=== PATIENT | female | born 1930 | race Caucasian/White ===

== ENCOUNTER 2018-08-20 12:43 | Inpatient (IN) | payer OTHER ==
[2018-08-20] MEDS ORDERED: IPRATROPIUM/ALBUTEROL 3 ML DEYVIAL IH ONE (13:00)
--- NOTE | 2018-08-20 13:03 | EDPHY ---
H & P Time Seen by Provider: 08/20/18 12:50 HPI/ROS: CHIEF COMPLAINT: Worsening shortness of breath x2 days HISTORY OF PRESENT ILLNESS: Patient presents with increasing oxygen requirement over baseline 4 L nasal cannula. She is more short of breath and is feels tired, increasing short of breath especially with exertion. This is associated with a sharp left-sided chest pain just under her breast which is pleuritic. Not there unless she takes deep breath. No hemoptysis or sputum production. No fever or chills. REVIEW OF SYSTEMS: Eye: no change in vision ENT: no sore throat Cardiac: no chest pain or syncope Pulmonary: HPI no coughing or hemoptysis Abdomen: no vomiting, diarrhea, abdominal pain Musculoskeletal: No leg swelling Skin: no rash Neuro: no headache Constitutional: no fever : no urinary symptoms A comprehensive 10 point review of systems is otherwise negative aside from elements mentioned in the history of present illness. PAST MEDICAL HISTORY: Includes COPD, atrial fibrillation not anticoagulated, hypertension, hyperlipidemia, depression Social history: Quit smoking 30 years ago, lives in [facility] General Appearance: Alert and conversant, cooperative. Eyes: No scleral icterus. ENT, Mouth: Normal mucous membranes. Respiratory: Slight bilateral expiratory wheezing and tachypnea. On oxygen she is able to speak in full sentences. Cardiovascular: Regular rate and rhythm. Gastrointestinal: Abdomen is soft and non tender. Neurological: Alert, face symmetric, normal motor and sensory in extremities. Skin: Warm and dry, no rashes. Musculoskeletal: No peripheral edema. Psychiatric: Not agitated. Emergency Department course/MDM: DuoNeb, EKG, D-dimer and chest x-ray. 1345: D-dimer elevated, CTA discussed and consented. 1458: CT results discussed with the patient, admission for treatment of COPD and further investigation of left lower lung atelectasis. The left lung atelectasis likely the reason for the patient's increasing oxygen requirement and left-sided sharp chest pain. Does not have evidence of pneumonia or PE. Smoking Status: Former smoker Constitutional: Initial Vital Signs Temperature (C) 37.2 C 08/20/18 12:49 Heart Rate 73 08/20/18 12:49 Respiratory Rate 16 08/20/18 12:49 Blood Pressure 130/61 H 08/20/18 12:49 O2 Sat (%) 95 08/20/18 12:49 O2 Delivery Mode Nasal Cannula O2 (L/minute) 4 Allergies/Adverse Reactions: No Known Allergies Allergy (Unverified 08/20/18 12:49) Home Medications: Medication Instructions Recorded Acetaminophen [Tylenol ES 500 mg 1,000 mg PO Q6 PRN 08/20/18 (*)] Albuterol [Proventil Inhaler HFA 2 puffs IH Q4H PRN 08/20/18 (*)] Aspirin [Aspirin 81mg (*)] 81 mg PO DAILY 08/20/18 Bisacodyl [Dulcolax] 10 mg RC DAILY PRN 08/20/18 Cholecalciferol Vit D3 [Vitamin D3 5,000 units PO DAILY 08/20/18 2000 units tab (OTC)] Clotrimazole 1% [Lotrimin 1%] 1 nadia TOP BID PRN 08/20/18 Diclofenac Sodium 1% [Voltaren Gel 1 gm TP Q6 PRN 08/20/18 (*)] Docusate Sodium [Colace 100 MG (*)] 100 mg PO Q2D@08/20/18 Gabapentin [Neurontin 100 MG (*)] 200 mg PO BID 08/20/18 Herbals/Supplements -Info Only 1 ea PO DAILY 08/20/18 Hydrocortisone 2.5% 1 nadia TP BID PRN 08/20/18 [Hydrocortisone 2.5% cream (*)] Levothyroxine [Synthroid 88 mcg 88 mcg PO HS 08/20/18 (*)] Losartan Potassium 100 mg PO DAILY 08/20/18 Mirtazapine [Remeron] 15 mg PO DAILY 08/20/18 Polyethylene Glycol 3350 [Miralax 17 gm PO Q2D@09 08/20/18 17 gm (*)] Pravastatin Sodium [Pravachol] 40 mg PO HS 08/20/18 Sodium Chloride [Saline Nose [place]] 1 spray NS Q4 PRN 08/20/18 Umeclidinium Brm/Vilanterol Tr 1 each IH DAILY 08/20/18 [Anoro Ellipta 62.5-25 Mcg INH] amLODIPine BESYLATE [Norvasc 10 mg 10 mg PO DAILY 08/20/18 (*)] traMADol [Ultram 50 mg (*)] 50 mg PO BID PRN 08/20/18 Medical Decision Making - Diagnostics EKG Interpretation: 12-lead EKG interpreted by me; official reading is in computer system. My interpretation is sinus rhythm with borderline left axis, old anterior septal infarct, nonspecific anterior T-wave abnormalities. Imaging Results: Imaging Impressions Chest X-Ray 08/20/18 12:55 Impression: Mild pulmonary vascular congestion right lower lung. No definite focal infiltrate or pleural effusion identified. Chest/Thorax CTA 08/20/18 13:44 Impression: 1. Negative CT examination of the chest for acute pulmonary thromboembolic disease. 2. Severe left lower lobe collapse associated with abrupt attenuation of the left lower lobe bronchus just past the origin, compatible with endoluminal obstruction, mucus retention versus endoluminal mass. 3. Severe underlying centrilobular emphysema. Results called to Dr. Savage Bose at 2:45 p.m. Imaging: Discussed imaging studies w/ at home independent call center agent Radiologist, I viewed and interpreted images myself Differential Diagnosis: Differential diagnosis considered for shortness of breath including but not limited to pulmonary infectious process, COPD, asthma, pulmonary embolus and congestive heart failure. Consult/Admit Bed Type: [place] [id number] - Data Points Laboratory Results: Laboratory Results 08/20/18 13:22 08/20/18 13:22 08/20/18 08/20/18 08/20/18 13:22 13:22 13:22 WBC 9.54 10^3/uL H 10^3/uL (3.80-9.50) RBC 4.42 10^6/uL 10^6/uL (4.18-5.33) Hgb 13.6 g/dL g/dL (12.6-16.3) Hct 41.4 % % (38.0-47.0) MCV 93.7 fL fL (81.5-99.8) MCH 30.8 pg pg (27.9-34.1) MCHC 32.9 g/dL g/dL (32.4-36.7) RDW 14.8 % % (11.5-15.2) Plt Count 232 10^3/uL 10^3/uL (150-400) MPV 10.4 fL fL (8.7-11.7) Neut % (Auto) 55.0 % % (39.3-74.2) Lymph % (Auto) 35.4 % % (15.0-45.0) [place] % (Auto) 8.0 % % (4.5-13.0) Eos % (Auto) 0.3 % L % (0.6-7.6) Baso % (Auto) 1.0 % % (0.3-1.7) Nucleat RBC Rel Count 0.0 % % (0.0-0.2) Absolute Neuts (auto) 5.24 10^3/uL 10^3/uL (1.70-6.50) Absolute Lymphs (auto) 3.38 10^3/uL H 10^3/uL (1.00-3.00) Absolute Monos (auto) 0.76 10^3/uL 10^3/uL (0.30-0.80) Absolute Eos (auto) 0.03 10^3/uL 10^3/uL (0.03-0.40) Absolute Basos (auto) 0.10 10^3/uL 10^3/uL (0.02-0.10) Absolute Nucleated RBC 0.00 10^3/uL 10^3/uL (0-0.01) Immature Gran % 0.3 % % (0.0-1.1) Immature Gran # 0.03 10^3/uL 10^3/uL (0.00-0.10) D-Dimer 1.74 ug/mLFEU H ug/mLFEU (0.00-0.50) Sodium 141 mEq/L mEq/L (135-145) Potassium 4.4 mEq/L mEq/L (3.5-5.2) Chloride 109 mEq/L mEq/L (97-110) Carbon Dioxide 21 mEq/l L mEq/l (22-31) Anion Gap 11 mEq/L mEq/L (6-14) BUN 27 mg/dL H mg/dL (7-23) Creatinine 1.3 mg/dL H mg/dL (0.6-1.0) Estimated GFR 39 Glucose 91 mg/dL mg/dL (70-100) Calcium 10.0 mg/dL mg/dL (8.5-10.4) POC Troponin I 08/20/18 12:56 WBC RBC Hgb Hct MCV MCH MCHC RDW Plt Count MPV Neut % (Auto) Lymph % (Auto) [place] % (Auto) Eos % (Auto) Baso % (Auto) Nucleat RBC Rel Count Absolute Neuts (auto) Absolute Lymphs (auto) Absolute Monos (auto) Absolute Eos (auto) Absolute Basos (auto) Absolute Nucleated RBC Immature Gran % Immature Gran # D-Dimer Sodium Potassium Chloride Carbon Dioxide Anion Gap BUN Creatinine Estimated GFR Glucose Calcium POC Troponin I 0.00 ng/mL ng/mL (0.00-0.08) Medications Given: Discontinued Medications Albuterol/Ipratropium (Duoneb) 3 ml IH EDNOW ONE Stop: 08/20/18 13:01 Last Admin: 08/20/18 13:29 Dose: 3 ml Sodium Chloride (Ns) 500 mls @ 1,000 mls/hr IV EDNOW ONE PRN Reason: Protocol Stop: 08/20/18 14:13 Last Admin: 08/20/18 14:24 Dose: 500 mls Point of Care Test Results: Chemistry 08/20/18 12:56 POC Troponin I 0.00 ng/mL ng/mL (0.00-0.08) Departure - Departure Disposition: [facility] Inpatient Acute Clinical Impression: Chronic obstructive pulmonary disease with acute exacerbation, Atelectasis of left lung Condition: Good
[2018-08-20 13:27] LABS: PLATELET COUNT 232 10^3/uL (150-400)
--- NOTE | 2018-08-20 13:28 | CPEKG ---
Test Reason : OPEN Blood Pressure : / mmHG Vent. Rate : 071 BPM Atrial Rate : 071 BPM P-R Int : 161 ms QRS Dur : 093 ms QT Int : 421 ms P-R-T Axes : 039 -22 111 degrees QTc Int : 458 ms Sinus rhythm Borderline left axis deviation Low voltage, precordial leads Anteroseptal infarct, old Repol abnrm suggests ischemia, lateral leads Confirmed by Savage Bose ([id number]) on 08/20/2018 1:27:47 PM Referred By: Confirmed By:Savage Bose
[2018-08-20] MEDS ORDERED: NS 500 ML IV ONE (13:44)
[2018-08-20] MEDS ORDERED: IOPAMIDOL (ISOVUE 370) 100 ML BTL IV ONE (13:53)
[2018-08-20] MEDS ORDERED: ACETAMINOPHEN 500 MG TAB PO PRN (15:14)
[2018-08-20] MEDS ORDERED: traMADol 50 MG TAB PO PRN (15:14)
[2018-08-20] MEDS ORDERED: SODIUM CL NASAL 45 ML BTL NS PRN (15:14)
[2018-08-20] MEDS ORDERED: ONDANSETRON 4 MG/2 ML VIAL IVP PRN (15:22)
[2018-08-20] MEDS ORDERED: NS 1,000 ML IV SCH (15:30)
[2018-08-20] MEDS: ALBUTEROL 3 ML DEYVIAL IH SCH ×2 (17:03→21:04)
--- NOTE | 2018-08-20 17:56 | GHP ---
DATE OF ADMISSION: 08/20/2018 CHIEF COMPLAINT: Shortness of breath. HISTORY: The patient is an 87-year-old female who comes to the emergency room complaining of counts include [facility] beds at the [facility] shortness of breath and worsening hypoxemia. She has a history of COPD, and wears 4 L of oxygen a t baseline. She has a [id number] sputum. Shortness of breath has been about a week. She has bee n very ill, lying in bed most of the day with minimal p.o. intake. She also developed a new left-ligia ed chest pain. This is more subaxillary, radiating to her back. It is worse with movement. She got the pain just now walking to the bathroom. PAST MEDICAL HISTORY: 1. COPD, 4 L baseline. 2. Atrial fibrillation. 3. Hypertension. 4. Hyperlipidemia. PAST SURGICAL HISTORY: Total knee arthroplasty, shoulder surgery, cholecystectomy, appendectomy. MEDICATIONS: Please see computerized record for full detailed list. ALLERGIES: No known drug allergies. SOCIAL HISTORY: She quit smoking 30 years ago. She smoked from the time of high school until her la te 50s. No alcohol. She lives in assisted living at [facility]. REVIEW OF SYSTEMS: Complete review of systems obtained. Review of systems negative for constitution al, HEENT, GI, pulmonary, cardiovascular, , hematology, skin, musculoskeletal, endocrine, psych, ex cept for positives as in HPI. FAMILY HISTORY: Reviewed, noncontributory to presenting complaint. PHYSICAL EXAMINATION: GENERAL: Well-developed, well-nourished female, in mild respiratory distress. She is dyspneic with conversation. VITAL SIGNS: Temp is 37.2, pulse 82, blood pressure 134/70, sa turating 87% on 5 L. ENT: Normal ears and nose. Hearing intact. Normal teeth. Oropharynx moist. EYES: Normal conjunctivae, pupils equal, round, react to light. CHEST: Increased work of breathin g. LUNGS: Diminished bilaterally. CARDIOVASCULAR SYSTEM: Regular rhythm. No murmur. No lower ex tremity edema. ABDOMEN: Soft, nontender. No hepatosplenomegaly. SKIN: Warm, dry, intact, without rash. MUSCULOSKELETAL: No cyanosis or clubbing. Strength 5/5, upper and lower extremities. NEURO : Cranial nerves intact. Normal sensation to light touch. PSYCH: Alert and oriented x3. Normal a ffect. Normal judgment and insight. Normal memory. LABORATORY DATA: White count 9.54, hematocrit 41.4, platelets 232. Sodium 141, potassium 4.4, chlor rosalie 109, bicarb 21, BUN 27, creatinine 1.3, glucose 91. EKG viewed by me. My personal interpretation is normal sinus rhythm, no ST-T wave changes. Chest x-ray shows minimal infiltrate. CT angiogram of the chest is negative for pulmonary embolus. She has severe COPD. She has left lower lobe collapse due to endobronchial lesion, possible tumor ve rsus mucus. ASSESSMENT AND PLAN: 1. Acute on chronic respiratory failure: Baseline is 4 L of oxygen. Currently saturating 87% on 5 L, and we are turning up her oxygen. I suspect this is due to a combination of chronic obstructive p ulmonary disease exacerbation and the lung collapse we have discovered. We will place her on continu ous pulse oximetry and scheduled nebulizer treatments. I have consulted Pulmonary Medicine, as discu ssed below. 2. Left lower lobe collapse: I have spoken with Dr. Davis and consulted Pulmonary Medicine. I anti cipate she will need a bronchoscopy. I will make her n.p.o. after midnight. 3. Chronic obstructive pulmonary disease exacerbation: We will check a respiratory PCR. We will sc hedule her on nebulizers. I do not hear any wheezing at this time. She is mostly diminished. Could consider adding steroids. 4. Acute renal failure: This is probably due to dehydration, due to her decreased oral intake due t o acute illness. Will hydrate her with IV fluids and recheck in the morning. 5. Code status: To be clarified. 6. Admission status: Will admit to observation. We will re-evaluate tomorrow regarding the ongoing need for hospitalization. 7. Deep venous thrombosis prophylaxis: She is high risk. Will place her on subcutaneous Lovenox. /[id number]/MODL
[2018-08-20] MEDS: GABAPENTIN 100 MG CAP PO SCH (19:58)
[2018-08-20] MEDS: PRAVASTATIN SODIUM 40 MG TAB PO SCH (19:59)
[2018-08-20] MEDS: LEVOTHYROXINE 88 MCG TAB PO SCH (19:59)
[2018-08-20] MEDS: DOCUSATE SODIUM 100 MG CAP PO SCH (19:59)
[2018-08-21] MEDS: ALBUTEROL 3 ML DEYVIAL IH SCH ×4 (05:22→21:29)
[2018-08-21] MEDS: NS 1,000 ML IV SCH ×2 (08:42→13:50)
[2018-08-21] MEDS ORDERED: ENOXAPARIN 40 MG/0.4 ML SYR SC SCH (09:00)
--- NOTE | 2018-08-21 09:37 | HOSPPROG ---
Hospitalist Progress Note Assessment/Plan: DIAGNOSES: * Acute hypoxemic respiratory failure * Acute carrillo virus infection * Acute complete collapse of segment of left lower lobe, question of possible airway obstruction due to secretions mass or other cause * Acute kidney injury due to dehydration * Left ribcage pain likely due to coughing * COPD exacerbation * Chronic atrial fibrillation * Chronic hypertension on antihypertensive PLANS: * Continue respiratory isolation * Continue current respiratory care * Will add Lidoderm patches for her ribcage pain * Pulmonary consultation pending * IV hydration for dehydration and renal issues, follow renal function closely * Enoxaparin DVT prophylaxis Will discuss with pulmonology today after they see her Still NPO for possible bronchoscopy SUBJECTIVE: Feels weak and tired unchanged from yesterday Mentions pain at lower left ribs anteriorly with coughing Shortness of breath unchanged OBJECTIVE Vitals reviewed: Still needing 5 L oxygen with intermittent tachypnea, intermittent mild hypertension; pulse and temperatures are good Branch Administrator, my review: Exam: alert oriented, looks tired skin warm dry color ok resps mildly labored sitting in chair on 5 L oxygen lungs very diminished but otherwise clear BSs heart regular abd soft nondistended nontender, bowel sounds present limbs warm, trace by pedal edema iv site ok Lab data: Creatinine is down down to 1.0 and BUN down 20 Slightly hyperchloremic Troponin negative Objective: Vital Signs Temp Pulse Resp BP Pulse Ox 37.3 C 83 20 148/66 H 95 08/21/18 07:38 08/21/18 07:38 08/21/18 08:59 08/21/18 07:38 08/21/18 08:59 Microbiology 08/20/18 17:40 Respiratory Panel (PCR) - Final Nasal, Sinus - Swab Coronovirus Oc43 Detected Laboratory Results 08/21/18 05:30 08/20/18 08/21/18 08/22/18 06:59 06:59 06:59 Intake Total 500 Balance 500 - Time Spent With Patient Time Spent with Patient: greater than 35 minutes Time Spent with Patient: Greater than 35 minutes spent on this patients care, greater than 50% of time spent counseling, educating, and coordinating care regarding the above mentioned plan. ICD10 Worksheet Patient Problems: Problems Problem Status Onset Atelectasis of left lung Acute Chronic obstructive pulmonary disease with acute exacerbation Acute
[2018-08-21] MEDS ORDERED: BENZONATATE 100 MG CAP PO PRN (10:19)
[2018-08-21] MEDS: LIDOCAINE 4%/MENTHOL 1% PATCH TD SCH (10:28)
[2018-08-21] MEDS: LOSARTAN POTASSIUM 50 MG TAB PO SCH (10:36)
[2018-08-21] MEDS: MIRTAZAPINE 15 MG TAB PO SCH (10:37)
[2018-08-21] MEDS: GABAPENTIN 100 MG CAP PO SCH ×2 (10:37→21:28)
[2018-08-21] MEDS: Umeclidinium Brm/Vilanterol Tr [Anoro Ellipta 62.5-25 Mcg Inh] IH SCH (10:41)
--- NOTE | 2018-08-21 10:44 | ASMTCMCOM ---
CM Note CM Note Notes: Patient admitted with acute hypoxemic respiratory failure r/2 viral infection and COPD exacerbation. She lives at [facility] but is independent in all ADLs. She uses 4L O2 around the clock. She "hates" PT and feels that she gets enough physical movement throughout her day. I assured her that we would try and get her back up to speed before going home so that she could resume her normal life. Anticipate an independent d/c. Case Management will follow. Date Signed: 08/21/2018 10:43 AM Electronically Signed By:Flores Novoa RN
[2018-08-21] MEDS: PRAVASTATIN SODIUM 40 MG TAB PO SCH (21:28)
[2018-08-21] MEDS: LEVOTHYROXINE 88 MCG TAB PO SCH (21:28)
[2018-08-21] MEDS: PATCH REMOVAL 1 EA PATCH TD SCH (21:32)
[2018-08-22 05:19] LABS: PLATELET COUNT 152 10^3/uL (150-400)
[2018-08-22] MEDS: ALBUTEROL 3 ML DEYVIAL IH SCH ×4 (06:10→21:33)
[2018-08-22] MEDS: LIDOCAINE 4%/MENTHOL 1% PATCH TD SCH (09:08)
[2018-08-22] MEDS: LOSARTAN POTASSIUM 50 MG TAB PO SCH (09:09)
[2018-08-22] MEDS: GABAPENTIN 100 MG CAP PO SCH ×2 (09:09→21:28)
[2018-08-22] MEDS: MIRTAZAPINE 15 MG TAB PO SCH (09:09)
[2018-08-22] MEDS: ENOXAPARIN 30 MG/0.3 ML SYR SC SCH (09:10)
[2018-08-22] MEDS: POLYETHYLENE GLYCOL 3350 17 GM PKT PO SCH (09:15)
[2018-08-22] MEDS: Umeclidinium Brm/Vilanterol Tr [Anoro Ellipta 62.5-25 Mcg Inh] IH SCH (09:16)
--- NOTE | 2018-08-22 09:53 | PDMN ---
Medical Necessity Medical necessity: Pt meets IP criteria as of 08/21/18 per MD and [facility] MG-PUL ( Pulmonary Disease); los > 2 mn for ongoing tx and management of acute on chronic respiratory failure with increased O2 demand (baseline is 4 lpm, currently needing 5-6 lpm) in the setting of COPD as well as left lower lobe collapse and MISTY; requiring respiratory support, pulmonology consultation with possible bronchoscopy, O2 monitoring and serial labs.
--- NOTE | 2018-08-22 10:46 | HOSPPROG ---
Hospitalist Progress Note Assessment/Plan: DIAGNOSES: * Acute hypoxemic respiratory failure * Acute carrillo virus infection * Suspect possible postviral community-acquired bacterial pneumonia with fever and high procalcitonin and consolidated segment of left lower lobe * Acute complete collapse of segment of left lower lobe, question of possible airway obstruction due to secretions mass or other cause * Acute kidney injury due to dehydration * Left ribcage pain likely due to coughing * COPD exacerbation * Chronic atrial fibrillation * Chronic hypertension on antihypertensive PLANS: * Continue respiratory isolation for carrillo virus * Continue current respiratory care * Antibiotic added for possible secondary bacterial pneumonia * Will add Lidoderm patches for her ribcage pain * Pulmonary consultation pending - ? If bronchoscopy will be helpful for assessing collapse left lower lobe segment * IV hydration for dehydration and renal issues, follow renal function closely * Enoxaparin DVT prophylaxis I reviewed in detail with Dr. Wilkinson last night. Apparently the communications did not occur from Tuesday low heel builder to him that this patient needed consultation so he did not end up seeing her yesterday but will see her today. I will review with him after he sees her today. SUBJECTIVE: Perhaps slightly less short of breath than yesterday but still notably more dyspneic than usual Some nasal congestion Some chills last night Lidoderm helping her ribcage pain OBJECTIVE Vitals reviewed: T-max 38.4 overnight, Oxygen at 4 L, other vitals stable Exam: alert oriented, looks tired skin warm dry color ok resps mildly labored sitting in chair on 4 L oxygen lungs very diminished but otherwise clear BSs heart regular abd soft nondistended nontender, bowel sounds present limbs warm, trace by pedal edema iv site ok Lab data: Creatinine stable at 1.0 Slightly hyperchloremic Procalcitonin elevated 0.19 Objective: Vital Signs Temp Pulse Resp BP Pulse Ox 36.4 C 70 20 112/60 96 08/22/18 08:22 08/22/18 08:22 08/22/18 08:22 08/22/18 08:22 08/22/18 08:22 Laboratory Results 08/22/18 04:08 08/22/18 04:08 08/21/18 08/22/18 08/23/18 06:59 06:59 06:59 Intake Total 1650 Balance 1650 - Time Spent With Patient Time Spent with Patient: greater than 35 minutes Time Spent with Patient: Greater than 35 minutes spent on this patients care, greater than 50% of time spent counseling, educating, and coordinating care regarding the above mentioned plan. ICD10 Worksheet Patient Problems: Problems Problem Status Onset Atelectasis of left lung Acute Chronic obstructive pulmonary disease with acute exacerbation Acute
[2018-08-22] MEDS ORDERED: AZITHROMYCIN 250 MG TAB PO ONE (10:47)
[2018-08-22] MEDS: SODIUM CL NASAL GEL 14.1 GM TUBE TP PRN (11:14)
--- NOTE | 2018-08-22 18:45 | GCON ---
PULMONARY/CRITICAL CARE CONSULTATION DATE OF CONSULTATION: 08/22/2018 REFERRING PHYSICIAN: Jesus Page MD REASON FOR REFERRAL: Evaluation and management of collapsed left lower lobe in the setting of a wendi l pneumonia. HISTORY: The patient is an 87-year-old woman who has a known history of COPD, on oxygen chronically, who was admitted to the hospital 2 days ago complaining of increased shortness of breath and worseni ng hypoxemia that had been present for about a week. She had been feeling quite poorly and had poor appetite. She also had quite severe left-sided chest pain along her lateral chest that moved to her back. It was worse with movement. She was admitted and started on nebulized bronchodilators. She r eports little sputum production. The shortness of breath has improved, which she attributes to the b ronchodilators, and the pain has resolved. PAST MEDICAL HISTORY: 1. COPD. 2. Atrial fibrillation. 3. Hypertension. 4. Hyperlipidemia. MEDICATIONS: Albuterol, Norvasc, aspirin, Dulcolax, Colace, Synthroid, losartan, Remeron, Pravachol, Ultram, tramadol, and Anoro. ALLERGIES: None. SOCIAL HISTORY: The patient has an extensive history of smoking, which she stopped 30 years ago. Delgado neil lives in assisted living at [facility]. FAMILY HISTORY: Unremarkable. REVIEW OF SYSTEMS: A 10-point review of systems adds nothing to the history of present illness. PHYSICAL EXAMINATION: GENERAL: The patient is awake and alert. She is in no acute distress. VITAL SIGNS: Her blood pressure is 127/63 with a heart rate of 69. She is afebrile. Oxygen saturations a re 96% on 4 L. HEENT: Normocephalic and atraumatic. No icterus. NECK: No JVD. Trachea is midlin e. CHEST: She has bibasilar rales. CARDIAC: Regular rate and rhythm without murmur. ABDOMEN: So ft, nontender. Bowel sounds are present. EXTREMITIES: No clubbing or cyanosis. She has 1+ lower e xtremity edema. NEURO: The patient is awake, alert. She has no gross motor or sensory deficits. LABORATORY: White blood count is 6.7, down from 9.5. A D-dimer was 1.7 and a chemistry group is unr emarkable. Procalcitonin is 0.16. A chest x-ray from August 20 did not demonstrate any infiltrate. A CT scan of the chest showed no pulmonary emboli. There was complete collapse of the left lower l obe, with occlusion of the left lower lobe bronchus proximally. There was no mass or significant eri nopathy. She had severe underlying centrilobular emphysema. Images reviewed by me. A respiratory p red is positive for coronavirus 1. ASSESSMENT: 1. Respiratory tract infection due to coronavirus. The patient reports symptomatic improvement with current therapy with nebulized bronchodilator, ceftriaxone, and azithromycin. 2. Chest pain. This has resolved, possibly related to Celebrex, but also may have improved spontane ously if this was due to a viral pleurisy. 3. Left lower lobe collapse. Possibilities include mucus plugging related to her viral respiratory tract infection or possibly lung cancer. I discussed this differential diagnosis with the patient. I think that the diagnostic possibilities include proceeding with bronchoscopy now, which would help diagnose mucous plugging or lung cancer, and I would be able to get biopsies. Alternatively, we coul d wait a week or 2, treat her for her respiratory tract infection, and then repeat a CAT scan to see if her collapse has resolved. If not, bronchoscopy could be performed at that time. The patient wou ld like to discuss this with her daughter before she proceeds, and was unable to reach her daughter t onight, so I will not schedule bronchoscopy at this time. RECOMMENDATIONS: 1. Await decision from the patient regarding whether she would like to proceed with bronchoscopy now or wait and perform an outpatient CT scan, possibly followed by bronchoscopy. 2. Continue empiric treatment for pneumonia, but I think this can probably be shortened to just a 3- 4 day course of ceftriaxone and azithromycin. 3. Continue bronchodilators. 4. Add guaifenesin. /[id number]/MODL
[2018-08-22] MEDS: PRAVASTATIN SODIUM 40 MG TAB PO SCH (21:28)
[2018-08-22] MEDS: LEVOTHYROXINE 88 MCG TAB PO SCH (21:28)
[2018-08-22] MEDS: DOCUSATE SODIUM 100 MG CAP PO SCH (21:28)
[2018-08-23] MEDS: PATCH REMOVAL 1 EA PATCH TD SCH ×2 (03:39→21:17)
[2018-08-23] MEDS: ALBUTEROL 3 ML DEYVIAL IH SCH ×4 (05:43→21:04)
[2018-08-23] MEDS: LIDOCAINE 4%/MENTHOL 1% PATCH TD SCH (08:08)
[2018-08-23] MEDS: LOSARTAN POTASSIUM 50 MG TAB PO SCH (08:09)
[2018-08-23] MEDS: GABAPENTIN 100 MG CAP PO SCH ×2 (08:10→21:13)
[2018-08-23] MEDS: MIRTAZAPINE 15 MG TAB PO SCH (08:11)
[2018-08-23] MEDS: Umeclidinium Brm/Vilanterol Tr [Anoro Ellipta 62.5-25 Mcg Inh] IH SCH (08:12)
[2018-08-23] MEDS: ENOXAPARIN 30 MG/0.3 ML SYR SC SCH (08:12)
--- NOTE | 2018-08-23 08:25 | HOSPPROG ---
Hospitalist Progress Note Assessment/Plan: #Acute coronavirus URI: supportive care, Mucinex -procalcitonin minimally elevated, thus will stop abx #acute on chronic hypoxemic resp failure -mucus plugging vs endobronchial tumor. Now agrees to bronch; to be done tomorrow #MISTY: due to decreased PO intake. Resolved #Permanent atrial fibrillation: NSR here. 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 Dry cough Objective: Vital Signs Temp Pulse Resp BP Pulse Ox 38.1 C 82 20 148/66 H 93 08/23/18 07:40 08/23/18 07:40 08/23/18 07:40 08/23/18 07:40 08/23/18 07:40 Laboratory Results 08/22/18 04:08 08/22/18 04:08 08/22/18 08/23/18 08/24/18 05:59 05:59 05:59 Intake Total 1650 488 Output Total 200 Balance 1650 288 - Time Spent With Patient Time Spent with Patient: greater than 35 minutes Time Spent with Patient: Greater than 35 minutes spent on this patients care, greater than 50% of time spent counseling, educating, and coordinating care regarding the above mentioned plan. - Physical Exam Constitutional: no apparent distress Eyes: PERRL Ears, Nose, Mouth, Throat: moist mucous membranes Cardiovascular: regular rate and rhythym Respiratory: inspiratory crackles, rhonchi Gastrointestinal: normoactive bowel sounds Genitourinary: no bladder fullness Skin: warm Musculoskeletal: full muscle strength Neurologic: AAOx3, CN II-XII Intact Psychiatric: interacting appropriately ICD10 Worksheet Patient Problems: Problems Problem Status Onset Chronic Disease Mgmt/Transitional Care Acute Chronic obstructive pulmonary disease with acute exacerbation Acute Atelectasis of left lung Acute
[2018-08-23] MEDS ORDERED: AZITHROMYCIN 250 MG TAB PO SCH (09:00)
--- NOTE | 2018-08-23 13:32 | PDINTPN ---
Facilities Locator Progress Note Assessment/Plan: Assessment: Left lower lobe collapse: Question due to mucus plugging versus endobronchial malignancy. The patient now agrees to a bronchoscopy Pneumonia: Likely due to carrillo virus. Doubt she has active superimposed bacterial infection. Currently on ceftriaxone/azithromycin Emphysema: Seen on CT. On Anoro as an outpatient. Currently on albuterol nebs Plan: Add guaifenesin. Bronchoscopy tomorrow 08/23/18 13:33 Subjective: The patient continues to have cough productive of a scant amount of sputum. She feels her dyspnea is mild and stable. Her strength is improving. Objective: Vital Signs Temp Pulse Resp BP Pulse Ox 37.1 C 75 24 H 118/56 L 96 08/23/18 11:10 08/23/18 11:10 08/23/18 11:10 08/23/18 11:10 08/23/18 11:10 Laboratory Results 08/22/18 04:08 08/22/18 04:08 08/22/18 08/23/18 08/24/18 05:59 05:59 05:59 Intake Total 1650 488 Output Total 200 Balance 1650 288 Physical Exam - Physical Exam General Appearance: alert, no apparent distress EENT: normal ENT inspection Neck: normal inspection Respiratory: crackles (Bilateral), rhonchi Cardiac/Chest: edema (1+), irregularly irregular Abdomen: normal bowel sounds, non-tender Skin: normal color, warm/dry Extremities: normal inspection Neuro/Psych: alert, normal mood/affect, No motor weakness ICD10 Worksheet Patient Problems: Problems Problem Status Onset Atelectasis of left lung Acute Chronic Disease Mgmt/Transitional Care Acute Chronic obstructive pulmonary disease with acute exacerbation Acute
[2018-08-23] MEDS: guaiFENesin 600 MG TAB.ER PO SCH ×2 (13:37→21:13)
[2018-08-23] MEDS: SODIUM CL NASAL GEL 14.1 GM TUBE TP PRN (13:37)
[2018-08-23] MEDS: NS 1,000 ML IV SCH (13:42)
--- NOTE | 2018-08-23 15:59 | ASMTCMCOM ---
CM Note CM Note Notes: Reviewed chart, pt worked with PT/OT. They recommend H/HC, pt declines homecare, lives at [facility]. Will bronchoscopy tomorrow. DC Plan: TBD/ likely independent Date Signed: 08/23/2018 03:58 PM Electronically Signed By:Virginia Cabrera RN
[2018-08-23] MEDS: PRAVASTATIN SODIUM 40 MG TAB PO SCH (21:13)
[2018-08-23] MEDS: LEVOTHYROXINE 88 MCG TAB PO SCH (21:13)
[2018-08-24] MEDS: ALBUTEROL 3 ML DEYVIAL IH SCH ×4 (05:38→21:25)
--- NOTE | 2018-08-24 08:12 | HOSPPROG ---
Hospitalist Progress Note Assessment/Plan: #Acute coronavirus URI: supportive care, Mucinex -procalcitonin minimally elevated, thus will stop abx #Acute on chronic hypoxemic resp failure -LLL collapse: moderate purulent secretion on bronch, no mass -Pred 60mg BID, Mucomyst #MISTY: due to decreased PO intake. Resolved #Permanent atrial fibrillation: NSR here. Not on BB or AC #HTN: home meds #Hypothyroidism: LT4 #Emphysema: Anoro #Diet: NPO after MN #DVT ppx: Lovenox #Disp: inpatient admission for Duonebs, PT. DC once clinically improved in next 1-2 days. Discussed case with Dr. Wilkinson Subjective: anxious and more SOB after bronch Objective: Vital Signs Temp Pulse Resp BP Pulse Ox 36.8 C 73 20 136/63 H 96 08/24/18 04:00 08/24/18 04:00 08/24/18 04:00 08/24/18 04:00 08/24/18 04:00 Laboratory Results 08/22/18 04:08 08/24/18 04:19 08/23/18 08/24/18 08/25/18 05:59 05:59 05:59 Intake Total 488 Output Total 200 Balance 288 - Time Spent With Patient Time Spent with Patient: greater than 35 minutes Time Spent with Patient: Greater than 35 minutes spent on this patients care, greater than 50% of time spent counseling, educating, and coordinating care regarding the above mentioned plan. - Physical Exam Constitutional: no apparent distress Ears, Nose, Mouth, Throat: moist mucous membranes Cardiovascular: regular rate and rhythym Respiratory: rhonchi, other (increased WOB) Gastrointestinal: normoactive bowel sounds Genitourinary: no bladder fullness Skin: warm Musculoskeletal: full muscle strength Neurologic: AAOx3, CN II-XII Intact Psychiatric: interacting appropriately ICD10 Worksheet Patient Problems: Problems Problem Status Onset Atelectasis of left lung Acute Chronic Disease Mgmt/Transitional Care Acute Chronic obstructive pulmonary disease with acute exacerbation Acute
[2018-08-24] MEDS: LOSARTAN POTASSIUM 50 MG TAB PO SCH (08:13)
[2018-08-24] MEDS: GABAPENTIN 100 MG CAP PO SCH ×2 (08:13→20:23)
[2018-08-24] MEDS: MIRTAZAPINE 15 MG TAB PO SCH (08:13)
[2018-08-24] MEDS: guaiFENesin 600 MG TAB.ER PO SCH ×2 (08:13→20:23)
[2018-08-24] MEDS: ENOXAPARIN 40 MG/0.4 ML SYR SC SCH (08:14)
[2018-08-24] MEDS: LIDOCAINE 4%/MENTHOL 1% PATCH TD SCH (08:25)
[2018-08-24] MEDS: POLYETHYLENE GLYCOL 3350 17 GM PKT PO SCH (08:26)
[2018-08-24] MEDS: Umeclidinium Brm/Vilanterol Tr [Anoro Ellipta 62.5-25 Mcg Inh] IH SCH (09:19)
[2018-08-24] MEDS ORDERED: NS 500 ML IV ONE (10:23)
[2018-08-24] MEDS ORDERED: ALBUTEROL 3 ML DEYVIAL IH ONE (10:23)
[2018-08-24] MEDS ORDERED: fentaNYL 100 MCG/2 ML INJ ONE (10:44)
[2018-08-24] MEDS ORDERED: LIDOCAINE HCL 4% TOPICAL SOLN 50ML ONE (10:44)
[2018-08-24] MEDS ORDERED: LIDOCAINE 1% 300 MG/30 ML SDV ONE (10:44)
[2018-08-24] MEDS ORDERED: MIDAZOLAM 2 MG/2 ML VIAL ONE (10:44)
--- NOTE | 2018-08-24 11:24 | PDPROPOC ---
Sedation Plan of Care Sedation Plan of Care: vital signs stable, mental status noted, patient educated of risks, benefits, alternatives, patient can tolerate sedation ASA Classification: ASA 2 Planned drugs: fentanyl, midazolam Mallampati Score: Class 2 Mallampati Reference Image: Patient passed 3-3-2 rule?: Yes
[2018-08-24] MEDS ORDERED: methylPREDNISolone SOD SUCC 125 MG/2 ML VIAL IVP ONE (11:25)
[2018-08-24] MEDS ORDERED: fentaNYL 100 MCG/2 ML INJ IVP ONE (11:30)
[2018-08-24] MEDS ORDERED: MIDAZOLAM 2 MG/2 ML VIAL IVP ONE (11:30)
[2018-08-24] MEDS: ACETYLCYSTEINE 10% IH/PO 4 ML VIAL IH SCH ×3 (12:05→21:26)
--- NOTE | 2018-08-24 12:22 | PDINTPN ---
Cytology Technologist Progress Note Assessment/Plan: Assessment: Left lower lobe collapse: Question due to mucus plugging versus endobronchial malignancy. Adjust performed a bronchoscopy, which found a moderate amount of thick purulent secretions, edematous mucosa, but no endobronchial lesions. Pneumonia: Likely due to coronavirus. Doubt she has active superimposed bacterial infection. Ceftriaxone/azithromycin discontinued after completing 4 days. Emphysema: Seen on CT. On Anoro as an outpatient. Currently on albuterol nebs Plan: Add Mucomyst and start steroids Observe off antibiotics. Await cultures and cytology. 08/24/18 12:22 Subjective: The patient continues to feel wheezing and chest congestion. Her dyspnea is about the same. Objective: Vital Signs Temp Pulse Resp BP Pulse Ox 36.6 C 66 14 117/55 L 94 08/24/18 09:32 08/24/18 09:32 08/24/18 11:14 08/24/18 12:01 08/24/18 12:01 Laboratory Results 08/22/18 04:08 08/24/18 04:19 08/23/18 08/24/18 08/25/18 05:59 05:59 05:59 Intake Total 488 Output Total 200 Balance 288 Physical Exam - Physical Exam General Appearance: alert, no apparent distress EENT: normal ENT inspection Neck: normal inspection Respiratory: rhonchi, wheezing Cardiac/Chest: regular rate, rhythm, edema Abdomen: normal bowel sounds, non-tender Skin: normal color, warm/dry Extremities: non-tender Neuro/Psych: alert, normal mood/affect, oriented x 3 ICD10 Worksheet Patient Problems: Problems Problem Status Onset Atelectasis of left lung Acute Chronic Disease [facility]/Transitional Care Acute Chronic obstructive pulmonary disease with acute exacerbation Acute
--- NOTE | 2018-08-24 12:46 | GPN ---
DATE OF PROCEDURE: 08/24/2018 PROCEDURE: Flexible fiberoptic bronchoscopy REASON FOR THE PROCEDURE: Collapsed left lower lobe, possible endobronchial lesion. PROCEDURE NOTE: The risks and benefits of the procedure were explained to the patient, who agreed to proceed. The entire procedure was performed in the endoscopy suite with the patient under blood pre ssure, EKG, and oximetry monitoring. After an appropriate time-out, patient was given 2 mg of Versed and 100 mcg of fentanyl, and topical anesthetic was used to anesthetize the oral airway. A bite block was placed between her teeth and th e bronchoscope was passed was advanced through the bite block into the vocal cords, which moved arabella lly. 1% lidocaine was used on the airways for further anesthesia. The bronchoscope was advanced int o the trachea, which was normal proximally, but there were some purulent secretions distally, which w ere easily suctioned. These extended down to the left-sided airways. These were quite thick and req uired fairly extensive suctioning. I proceeded directly to the left-sided airways, where I encountered a moderate amount of these purule nt secretions, which were suctioned and lavaged. I then turned to the right-sided airways, where I a lso encountered a moderate amount of tenacious, purulent secretions, which were suctioned and lavaged until clear. I then returned to the left-sided airways, did final lavage, and thoroughly examined to the left lowe r lobe, where I found no endobronchial lesions. Washings were taken primarily from the left lung. T he mucosa throughout was somewhat edematous, but there were no discrete endobronchial lesions. Washi ngs were sent for Gram stain, culture and cytology. There were no complications apparent at the end of the procedure. /[id number]/MODL
[2018-08-24] MEDS: predniSONE 20 MG TAB PO SCH (18:08)
[2018-08-24] MEDS: LEVOTHYROXINE 88 MCG TAB PO SCH (20:23)
[2018-08-24] MEDS: PATCH REMOVAL 1 EA PATCH TD SCH (20:23)
[2018-08-24] MEDS: DOCUSATE SODIUM 100 MG CAP PO SCH (20:23)
[2018-08-24] MEDS: PRAVASTATIN SODIUM 40 MG TAB PO SCH (20:23)
[2018-08-25] MEDS: ALBUTEROL 3 ML DEYVIAL IH SCH ×2 (05:38→10:41)
[2018-08-25] MEDS: ACETYLCYSTEINE 10% IH/PO 4 ML VIAL IH SCH ×2 (05:38→10:40)
[2018-08-25] MEDS: ENOXAPARIN 40 MG/0.4 ML SYR SC SCH (08:18)
[2018-08-25] MEDS: MIRTAZAPINE 15 MG TAB PO SCH (08:21)
[2018-08-25] MEDS: predniSONE 20 MG TAB PO SCH (08:22)
[2018-08-25] MEDS: GABAPENTIN 100 MG CAP PO SCH (08:22)
[2018-08-25] MEDS: guaiFENesin 600 MG TAB.ER PO SCH (08:22)
[2018-08-25] MEDS: LOSARTAN POTASSIUM 50 MG TAB PO SCH (08:22)
[2018-08-25] MEDS: LIDOCAINE 4%/MENTHOL 1% PATCH TD SCH (08:23)
[2018-08-25] MEDS: Umeclidinium Brm/Vilanterol Tr [Anoro Ellipta 62.5-25 Mcg Inh] IH SCH (08:23)
[2018-08-25] MEDS ORDERED: FUROSEMIDE 20 MG TAB PO SCH (09:45)
[2018-08-25 11:28] VITALS: BP 132/58
--- NOTE | 2018-08-25 11:56 | PDHOMEO2F ---
Home Oxygen Face to Face Home Orders: I certify that a physician or a nurse practitioner or physician's business services assistant has had a [id number] encounter with this patient on the date of this order due to the diagnosis listed, which relates to the primary reason the patient requires home oxygen. Alternative treatments have been tried, or considered, and deemed ineffective. It is anticipated that supplemental oxygen will result in improvement with treatment. Home oxygen qualifying diagnosis: COPD Home oxygen secondary diagnosis: hypoxia SpO2 on room air (%): 82 Frequency of home oxygen needed: continuous Home oxygen liters per minute: 4 Home oxygen delivery device: nasal cannula Concentrator: No E-tanks for mobility and back up: No I certify that, based on these findings, the home oxygen is medically necessary for this patient for the following length of time. Length of time home oxygen needed: 99 years Home Oxygen Comment: Nebulizer set-up needed for home. Already has oxygen at home
--- NOTE | 2018-08-25 12:10 | ASMTLACE ---
YADIE Length of stay for Answers: 3 days current admission Acuity / Level of Answers: Yes Care: Did the patient have an inpatient admission? Comorbidities - select Answers: Chronic pulmonary disease all that apply Congestive heart failure Other Notes: AFib; HTN; HLD # of Emergency department Answers: 1-2 visits in the last 6 months Social determinants Answers: Mental health diagnosis (anxiety, depression, pers onality disorders, etc.) Score: 15 Date Signed: 08/25/2018 12:09 PM Electronically Signed By:Virginia Cabrera RN
--- NOTE | 2018-08-25 12:19 | PDINTPN ---
Laser Print Operator Progress Note Assessment/Plan: Assessment: Left lower lobe collapse: Question due to mucus plugging versus endobronchial malignancy. I performed a bronchoscopy, which found a moderate amount of thick purulent secretions, edematous mucosa, but no endobronchial lesions. Pneumonia: Likely due to coronavirus. Doubt she has active superimposed bacterial infection. Ceftriaxone/azithromycin discontinued after completing 4 days. Emphysema: Seen on CT. On Anoro as an outpatient. Currently on albuterol nebs Plan: OK to discharge. Continue Mucomyst and steroids, taper off over a few days. Follow-up with me in 1-2 weeks. 08/25/18 12:16 08/25/18 12:20 Subjective: Feels better, with decreased chest congestion. Still some sputum production, particularly with Mucomyst and chest percussion. Objective: Vital Signs Temp Pulse Resp BP Pulse Ox 36.7 C 95 20 132/58 H 96 08/25/18 11:26 08/25/18 11:26 08/25/18 11:26 08/25/18 11:26 08/25/18 11:26 Laboratory Results 08/22/18 04:08 08/24/18 04:19 Physical Exam - Physical Exam General Appearance: alert, no apparent distress EENT: normal ENT inspection Neck: normal inspection Respiratory: chest non-tender, lungs clear Cardiac/Chest: regular rate, rhythm, No edema Abdomen: normal bowel sounds, non-tender Skin: normal color, warm/dry Extremities: normal inspection Neuro/Psych: alert, normal mood/affect, oriented x 3 ICD10 Worksheet Patient Problems: Problems Problem Status Onset Atelectasis of left lung Acute Chronic Disease Mgmt/Transitional Care Acute Chronic obstructive pulmonary disease with acute exacerbation Acute
--- NOTE | 2018-08-25 12:30 | ASMTCMCOM ---
CM Note CM Note Notes: Mary from [facility] here to evaluate pt. She has concerns about pt's stage of contagiousness fo Coronovirus. Per MD, after 5 days pt can be taken off precautions. Also confirms that [facility] can do ordered nebulizer treatments, RT to set up. Pt is ok to return to [facility] per Mary. YARON met with pt who gave permission to speak with dtr Jessica, I called dtr and she can pick pt up at 1pm. DC Plan: Independent Date Signed: 08/25/2018 12:26 PM Electronically Signed By:Virginia Cabrera RN
--- NOTE | 2018-08-25 12:35 | ASMTDCNOTE ---
Case Management Discharge Discharge Order Complete? Answers: Yes Patient to Obtain Answers: Other Notes: [facility] Medications Transportation Arranged Answers: Family/Friends Faxed Final Orders Answers: Yes Agency/Facility Transfer Answers: Yes Report Printed & Faxed to Receiving Agency Family Notified Answers: Yes Discharge Comments Notes: D/w MD, pt ok to return to [facility]. Mary at came and evaluated pt for dc and approved her return. CM printed out medlist, hardcopy of RX of Tramadol and gave to Mary for them to fill. Dtr to transport pt back to [facility]. Date Signed: 08/25/2018 12:34 PM Electronically Signed By:Virginia Cabrera RN
--- NOTE | 2018-08-25 14:39 | GDS ---
DISCHARGE DIAGNOSES: 1. Left lower lobe collapse. 2. Pneumonia, likely postviral. 3. Emphysema. 4. Acute kidney injury. 5. Permanent atrial fibrillation. 6. Hypertension. 7. Hypothyroidism. 8. Chronic hypoxemic respiratory failure, on 4 L. 9. COPD exacerbation. 10. Lower extremity edema. 11. Coronavirus URI HISTORY OF PRESENT ILLNESS: An 87-year-old female with chronic hypoxemic respiratory failure on 4 L and COPD presented to the emergency room with shortness of breath. This was occurring for a week. She has been fatigued and lying in bed most of the day with decreased p.o. intake. PROCEDURES: Bronchoscopy. HOSPITAL COURSE BY PROBLEM: 1. Acute on chronic hypoxemic respiratory failure: due to COPD exacerbation and coronavirus URI, LLL collapse. DC with Mucomyst, Neds, and prednisone.. 2. Left lower lobe collapse: Moderate purulent secretions on bronch, no mass. Plan above. 3. MISTY: due to decreased p.o. intake. Resolved 4. Permanent atrial fibrillation: Normal sinus rhythm. Not on rate- controlling medication or anticoagulation. 5. Lower extremity edema: Added low-dose Lasix 20 mg. 6. Hypothyroidism: Synthroid. 7. COPD exacerbation due to coronavirus: Initially treated with IV antibiotics , but procalcitonin minimally elevated so these were discontinued after four days. DISPOSITION: Patient is stable for discharge to [facility]. NEW MEDICATIONS: Mucomyst, albuterol inhalers, prednisone, Lasix FOLLOWUP: 1. Per primary care physician. 2. Dr. Wilkinson with Pulmonology. 3. Monitor BMP with Lasix PHYSICAL EXAM: GENERAL: Today, temperature 36.7, blood pressure 132/58, heart rate 80s, respirations 20, 96% on 3 L. GENERAL: She is ambulating in the unit with a walker. HEENT: PERRLA. Moist mucous membranes. CV: Regular rate and rhythm. LUNGS: Rhonchorous but less. ABDOMEN: Soft, nontender, nondistended. Positive bowel sounds. : No Ramos. MUSCULOSKELETAL: Walking with a walker. NEURO: 2 through 12 intact. PSYCH: Alert and oriented x3. TIME SPENT ON DISCHARGE: Greater than 30 minutes coordinating with Chris Cabrera and discussing the case with Dr. Wilkinson. /[id number]/MODL MTDD
--- NOTE | 2018-08-25 16:09 | ASDISCHSUM ---
Discharge Information Plan Status:Assisted Living Medically Cleared to Leave:08/24/2018 Discharge Date:08/25/2018 01:14 PM CM D/C Disposition: ADT D/C Disposition:Assisted Facility Projected Discharge Date:08/25/2018 11:00 AM Transportation at D/C: Discharge Delay Reason: Follow-Up Date:08/25/2018 11:00 AM Discharge Slot: Final Diagnosis: Placement Information Referral Type:Assisted Living Residence Referral ID:[id number] Provider Name:Chris Cabrera Mattie Josenayely Address 1:[address] [facility] [address] Phone Number: Address 2:Madhu Fax Number: [facility]:Madhu Selection Factors: State:[place] Patient Contact Information Contact Name:JESSICA Relationship:Daughter Address: Home Phone: Work Phone: Mely:RITA Vincent Phone: [facility] Code:[place] Email: Financial Information Financial Class:Medicare Primary Plan Desc:MEDICARE INPATIENT Primary Plan Number:[id number] Secondary Plan Desc:[facility] Secondary Plan Number:[id number] Assessment Information LACE LACE Length of stay for Answers: 3 days current admission Acuity / Level of Answers: Yes Care: Did the patient have an inpatient admission? Comorbidities - select Answers: Chronic pulmonary disease all that apply Congestive heart failure Other Notes: AFib; HTN; HLD # of Emergency department Answers: 1-2 visits in the last 6 months Social determinants Answers: Mental health diagnosis (anxiety, depression, pers onality disorders, etc.) Score: 15 Date Signed: 08/25/2018 12:09 PM Electronically Signed By:Virginia Cabrera RN [facility] CM Progress Note CM Note CM Note Notes: Patient admitted with acute hypoxemic respiratory failure r/2 viral infection and COPD exacerbation. She lives at [facility] but is independent in all ADLs. She uses 4L O2 around the clock. She "hates" PT and feels that she gets enough physical movement throughout her day. I assured her that we would try and get her back up to speed before going home so that she could resume her normal life. Anticipate an independent d/c. Case Management will follow. Date Signed: 08/21/2018 10:43 AM Electronically Signed By:Flores Novoa RN [facility] YARON Progress Note CM Note CM Note Notes: Reviewed chart, pt worked with PT/OT. They recommend H/HC, pt declines homecare, lives at [facility]. Will bronchoscopy tomorrow. DC Plan: TBD/ likely independent Date Signed: 08/23/2018 03:58 PM Electronically Signed By:Virginia Cabrera RN [facility] YARON Progress Note CM Note CM Note Notes: Mary from [facility] here to evaluate pt. She has concerns about pt's stage of contagiousness fo Coronovirus. Per MD, after 5 days pt can be taken off precautions. Also confirms that [facility] can do ordered nebulizer treatments, RT to set up. Pt is ok to return to [facility] per Mary. YARON met with pt who gave permission to speak with dtr Jessica, I called dtr and she can pick pt up at 1pm. DC Plan: Independent Date Signed: 08/25/2018 12:26 PM Electronically Signed By:Virginia Cabrera RN Case Management Discharge Plan Note Case Management Discharge Discharge Order Complete? Answers: Yes Patient to Obtain Answers: Other Notes: [facility] Medications Transportation Arranged Answers: Family/Friends Faxed Final Orders Answers: Yes Agency/Facility Transfer Answers: Yes Report Printed & Faxed to Receiving Agency Family Notified Answers: Yes Discharge Comments Notes: D/w MD, pt ok to return to [place]. Mary at came and evaluated pt for dc and approved her return. CM printed out medlist, hardcopy of RX of Tramadol and gave to Mary for them to fill. Dtr to transport pt back to [place]. Date Signed: 08/25/2018 12:34 PM Electronically Signed By:Virginia Cabrera RN Intervention Information Intervention Type:*Incorrect Registration Date of Service:08/20/2018 09:50 AM Patient Type:Inpatient Staff Member:Nadeen Simms Hours: Discipline: Severity: Comment:
== END 2018-08-25 13:14 | DRG 193 ==
LOC: EDUNIT# → INTOOBSV 14:57 → F3E 15:50 → OBSVTOIN 08-21 17:39
PROVIDERS: ADMIT Internal Medicine; ATTEND Internal Medicine
PROC: 0B938ZZ Drainage of Right Main Bronchus, Via Natural or Artificial Opening Endoscopic (ICD-10-PCS; principal; 2018-08-24 11:30)
PROC: 3E1F88Z Irrigation of Respiratory Tract using Irrigating Substance, Via Natural or Artificial Opening Endoscopic (ICD-10-PCS; principal; 2018-08-24 11:30)
PROC: 0B918ZZ Drainage of Trachea, Via Natural or Artificial Opening Endoscopic (ICD-10-PCS; principal; 2018-08-24 11:30)
PROC: 0B978ZZ Drainage of Left Main Bronchus, Via Natural or Artificial Opening Endoscopic (ICD-10-PCS; principal; 2018-08-24 11:30)
DX: J12.89 Other viral pneumonia (principal); J96.21 Acute and chronic respiratory failure with hypoxia; J98.11 Atelectasis; N17.9 Acute kidney failure, unspecified; J44.1 Chronic obstructive pulmonary disease with (acute) exacerbation; B97.29 Other coronavirus as the cause of diseases classified elsewhere; E86.0 Dehydration; I48.2 Chronic atrial fibrillation; I10 Essential (primary) hypertension; E03.9 Hypothyroidism, unspecified; E78.5 Hyperlipidemia, unspecified; Z99.81 Dependence on supplemental oxygen
CPT/HCPCS: 84484-ER; 97116-GP; 97162-GP; 97166-GO; 97535-GO; G0378; J0696; J1650; J2250; J2930; J3010; J7512; J7613; Q9967

== ENCOUNTER 2018-08-31 11:24 | Inpatient (IN) | payer OTHER ==
[2018-08-31 12:13] LABS: PLATELET COUNT 333 10^3/uL (150-400)
--- NOTE | 2018-08-31 12:21 | EDPHY ---
HPI/HX/ROS/PE/MDM Narrative: CHIEF COMPLAINT: "Steadily going down hill, so tired," recent diagnosis of pneumonia HISTORY OF PRESENT ILLNESS: The patient is an 87 y/o female with a history of COPD returning to the ED from [facility] complaining of worsening shortness of breath and fatigue. She was admitted 08/21/18 with coronavirus pneumonia and discharged 1 week ago on . She had a bronchoscopy during this visit due to left lower lobe collapse. She feels her symptoms are continuing to worsen and she is unable to sleep at the facility because they keep waking her up to give her medications. She is now too tired to walk or get around at home. She had a 10-minute episode of chest pain "straight across" her chest this morning that felt "like someone pouring lava into my lungs." This was associated with the sensation of a racing heart, but not abdominal pain, nausea, or diaphoresis. Her cough feels unchanged from prior. Her appetite has been okay, but she has not had a bowel movement for 4 days. She denies history of blood clots and is not on anticoagulants. No fever, chills, vomiting, diarrhea, urinary complaints, headache, lightheadedness. REVIEW OF SYSTEMS: Aside from elements discussed in the HPI, a comprehensive 10-point review of systems was reviewed and is negative. PAST MEDICAL HISTORY: Continuous home O2 @4lpm for COPD, emphysema; atrial fibrillation; hypertension; hyperlipidemia; hypothyroidism; total knee arthroplasty SOCIAL HISTORY: Lives at [facility]. DNR status - comfort care only. Former smoker until age 49. No alcohol. Prior medical records reviewed including admission 08/21/18 for pneumonia. VITAL SIGNS: Reviewed by me. RR 32. GENERAL: Well-developed, elderly, visibilty tachypneic, on 4LPM O2. HEENT: Atraumatic. Eyes: No icterus, no injection. Mouth: moist mucous membranes. No erythema or lesions. Neck: supple with no adenopathy. LUNGS: Clear to auscultation bilaterally, no wheezes, rhonchi or rales. Tachypneic. CARDIAC: Regular rate and rhythm, no rubs, murmurs or gallops. ABDOMEN: Soft, nontender, nondistended, bowel sounds normal. BACK: Left flank tenderness. EXTREMITIES: No trauma. Trace lower extremity edema. Range of motion is normal throughout. NEURO: Alert and oriented, grossly nonfocal. SKIN: Warm and dry, no rash. PSYCHIATRIC: Normal mentation, no agitation. Portions of this note were transcribed by a medical logistics specialist. I personally performed a history, physical exam, medical decision making, and confirmed accuracy of information the transcribed note. ED Course: 87 y/o female with recent diagnosis of coronavirus pneumonia who presents with ongoing dyspnea, fatigue, and general feeling of decline. She is tachypneic, but lungs are clear on auscultation. She is maintaining normal saturations on her typical 4LPM O2. Plan for IV, labs, EKG, chest x-ray. Of note, patient has advanced directives with her indicating she is DNR which she agrees with. However, the most form also indicates comfort measures only. Patient is visibly tachypneic and reports feeling very short of breath. I am unable to have a clear conversation with her regarding these wish this. The most form was signed in 2017 is unclear to me with the patient's wishes currently are, given the fact that she was very recently admitted to the hospital with significant specific therapies for her respiratory illness and not just comfort measures. The 12 lead EKG was interpreted by myself. Sinus mechanism. See hard copy and/ or "tracemaster" electronic copy for interpretation. Chest x-ray: nothing acute. WBC elevated 17.18, lactic acid elevated 3.1. 30cc per kilogram bolus of fluids ordered. DuoNeb administered. Case management involved. She discussed with Chris Cabrera and it sounds like patient's four times daily neb treatments had initially been delayed after she was discharged from the hospital. She evidently had requested to be transferred to the hospital secondary to her current symptoms of shortness of breath and fatigue. Spoke with hospitalist service. Dr. Hess accepts admission. D-dimer had been ordered to evaluate and screen the patient for potential thromboembolic disease. This was rejected x2. Given her history of chest pain which occurred abruptly earlier today and her obvious increased work of breathing a CT scan was ordered. This was positive for small volume subsegmental pulmonary emboli in the right middle lobe and inferior left upper lobe. Dr. Carolyn Hess is evaluating the patient and is aware of the CT findings. She will discussed with the patient. MDM: Differential diagnosis for the patient's shortness of breath was considered including but not limited to pulmonary infectious processes, COPD exacerbation, pulmonary emboli, pulmonary edema, congestive heart failure, and cardiac causes. - Data Points Imaging Results: Imaging Impressions Chest X-Ray 08/31/18 11:36 Impression: No acute findings in the chest. Imaging: Discussed imaging studies w/ call centre supervisor Radiologist, I viewed and interpreted images myself Laboratory Results: Laboratory Results 08/31/18 11:55 08/31/18 11:55 08/31/18 08/31/18 08/31/18 14:15 13:46 13:46 WBC RBC Hgb Hct MCV MCH MCHC RDW Plt Count MPV Neut % (Auto) Lymph % (Auto) [place] % (Auto) Eos % (Auto) Baso % (Auto) Nucleat RBC Rel Count Absolute Neuts (auto) Absolute Lymphs (auto) Absolute Monos (auto) Absolute Eos (auto) Absolute Basos (auto) Absolute Nucleated RBC Immature Gran % Seg Neutrophils % Band Neutrophils % Lymphocytes % Monocytes % Eosinophils % Basophils % Metamyelocytes % Myelocytes % Promyelocytes % Blast Cells % Immature Gran # Absolute Seg Neuts Absolute Band Neuts Absolute Lymphocytes Absolute Monocytes Absolute Eosinophils Absolute Basophils Absolute Metamyelocyte Absolute Myelocytes Absolute Promyelocytes Absolute Plasma Cells Nucleated RBCs Absolute Blast Cells Plasma Cells % Platelet Estimate Echinocytes Elliptocytes PT REJ REJ INR REJ REJ APTT REJ REJ D-Dimer REJ REJ VBG Lactic Acid Sodium Potassium Chloride Carbon Dioxide Anion Gap BUN Creatinine Estimated GFR Glucose Calcium Total Bilirubin POC Troponin I Specimen Hemolysis Urine Color PALE YELLOW Urine Appearance CLEAR Urine pH 6.0 (5.0-7.5) Ur Specific [place] 1.005 (1.002-1.030) Urine Protein NEGATIVE (NEGATIVE) Urine Ketones NEGATIVE (NEGATIVE) Urine Blood NEGATIVE (NEGATIVE) Urine Nitrate NEGATIVE (NEGATIVE) Urine Bilirubin NEGATIVE (NEGATIVE) Urine Urobilinogen NEGATIVE EU EU (0.2-1.0) Ur Leukocyte Esterase NEGATIVE (NEGATIVE) Urine RBC 1-3 /hpf /hpf (0-3) Urine WBC 1-3 /hpf /hpf (0-3) Ur Epithelial Cells NONE SEEN /lpf /lpf (NONE-1+) Urine Glucose NEGATIVE (NEGATIVE) 08/31/18 08/31/18 08/31/18 13:46 11:59 11:59 WBC RBC Hgb Hct MCV MCH MCHC RDW Plt Count MPV Neut % (Auto) Lymph % (Auto) [place] % (Auto) Eos % (Auto) Baso % (Auto) Nucleat RBC Rel Count Absolute Neuts (auto) Absolute Lymphs (auto) Absolute Monos (auto) Absolute Eos (auto) Absolute Basos (auto) Absolute Nucleated RBC Immature Gran % Seg Neutrophils % Band Neutrophils % Lymphocytes % Monocytes % Eosinophils % Basophils % Metamyelocytes % Myelocytes % Promyelocytes % Blast Cells % Immature Gran # Absolute Seg Neuts Absolute Band Neuts Absolute Lymphocytes Absolute Monocytes Absolute Eosinophils Absolute Basophils Absolute Metamyelocyte Absolute Myelocytes Absolute Promyelocytes Absolute Plasma Cells Nucleated RBCs Absolute Blast Cells Plasma Cells % Platelet Estimate Echinocytes Elliptocytes PT INR APTT D-Dimer VBG Lactic Acid 3.1 mmol/L H mmol/L (0.7-2.1) Sodium Potassium Chloride Carbon Dioxide Anion Gap BUN Creatinine Estimated GFR Glucose Calcium Total Bilirubin 0.7 mg/dL mg/dL (0.1-1.4) POC Troponin I 0.00 ng/mL ng/mL (0.00-0.08) Specimen Hemolysis RENTAL REPRESENTATIVE Urine Color Urine Appearance Urine pH Ur Specific [place] Urine Protein Urine Ketones Urine Blood Urine Nitrate Urine Bilirubin Urine Urobilinogen Ur Leukocyte Esterase Urine RBC Urine WBC Ur Epithelial Cells Urine Glucose 08/31/18 08/31/18 08/31/18 11:55 11:55 11:55 WBC 17.18 10^3/uL H 10^3/uL (3.80-9.50) RBC 4.30 10^6/uL 10^6/uL (4.18-5.33) Hgb 13.1 g/dL g/dL (12.6-16.3) Hct 39.1 % % (38.0-47.0) MCV 90.9 fL fL (81.5-99.8) MCH 30.5 pg pg (27.9-34.1) MCHC 33.5 g/dL g/dL (32.4-36.7) RDW 15.3 % H % (11.5-15.2) Plt Count 333 10^3/uL 10^3/uL (150-400) MPV 9.6 fL fL (8.7-11.7) Neut % (Auto) Not Reported Lymph % (Auto) Not Reported [place] % (Auto) Not Reported Eos % (Auto) Not Reported Baso % (Auto) Not Reported Nucleat RBC Rel Count Not Reported Absolute Neuts (auto) Not Reported Absolute Lymphs (auto) Not Reported Absolute Monos (auto) Not Reported Absolute Eos (auto) Not Reported Absolute Basos (auto) Not Reported Absolute Nucleated RBC Not Reported Immature Gran % Not Reported Seg Neutrophils % 83.0 % % Band Neutrophils % 1.0 % % Lymphocytes % 9.0 % % Monocytes % 5.0 % % Eosinophils % 0.0 % % Basophils % 0.0 % % Metamyelocytes % 1.0 % % Myelocytes % 1.0 % % Promyelocytes % 0.0 % % Blast Cells % 0.0 % % Immature Gran # Not Reported Absolute Seg Neuts 14.26 10^3/uL H 10^3/uL (1.70-6.50) Absolute Band Neuts 0.17 10^3/uL 10^3/uL (0.00-0.70) Absolute Lymphocytes 1.55 10^3/uL 10^3/uL (1.00-3.00) Absolute Monocytes 0.86 10^3/uL H 10^3/uL (0.30-0.80) Absolute Eosinophils 0.00 10^3/uL L 10^3/uL (0.03-0.40) Absolute Basophils 0.00 10^3/uL L 10^3/uL (0.02-0.10) Absolute Metamyelocyte 0.17 10^3/mL H 10^3/mL (0.00-0.00) Absolute Myelocytes 0.17 10^3/mL H 10^3/mL (0.00-0.00) Absolute Promyelocytes 0.00 10^3/uL 10^3/uL (0.00-0.00) Absolute Plasma Cells 0.00 10^3/uL 10^3/uL (0.00-0.00) Nucleated RBCs 0 /100 WBC /100 WBC (0-0) Absolute Blast Cells 0.00 10^3/uL 10^3/uL (0.00-0.00) Plasma Cells % 0.0 % % Platelet Estimate ADEQUATE (ADEQ) Echinocytes 2+ H Elliptocytes 1+ H PT INR APTT D-Dimer VBG Lactic Acid Sodium 138 mEq/L mEq/L REJ (135-145) Potassium 4.2 mEq/L mEq/L Not Reported (3.5-5.2) Chloride 105 mEq/L mEq/L Not Reported (97-110) Carbon Dioxide 22 mEq/l mEq/l Not Reported (22-31) Anion Gap 11 mEq/L mEq/L Not Reported (6-14) BUN 43 mg/dL H mg/dL Not Reported (7-23) Creatinine 1.1 mg/dL H mg/dL Not Reported (0.6-1.0) Estimated GFR 47 Not Reported Glucose 103 mg/dL H mg/dL Not Reported (70-100) Calcium 9.9 mg/dL mg/dL Not Reported (8.5-10.4) Total Bilirubin POC Troponin I Specimen Hemolysis Urine Color Urine Appearance Urine pH Ur Specific [place] Urine Protein Urine Ketones Urine Blood Urine Nitrate Urine Bilirubin Urine Urobilinogen Ur Leukocyte Esterase Urine RBC Urine WBC Ur Epithelial Cells Urine Glucose Medications Given: Sodium Chloride (Ns) 2,200 mls @ 366.6666 mls/hr 30 ml/kg infuse over 6 hr ( 2200 ml) IV EDNOW ONE PRN Reason: Protocol Stop: 08/31/18 19:00 Last Admin: 08/31/18 14:12 Dose: 2,200 mls Discontinued Medications Albuterol/Ipratropium (Duoneb) 3 ml IH EDNOW ONE Stop: 08/31/18 13:45 Last Admin: 08/31/18 14:12 Dose: 3 ml Levofloxacin/Dextrose (Levaquin 750 Mg (Premix)) 150 mls @ 100 mls/hr IV DAILY CHERYLE PRN Reason: Protocol Stop: 09/30/18 15:59 Last Admin: 08/31/18 16:31 Dose: 150 mls Methylprednisolone Sodium Succinate (Solu-Medrol) 125 mg IVP EDNOW ONE Stop: 08/31/18 13:45 Last Admin: 08/31/18 14:12 Dose: 125 mg Morphine Sulfate (Morphine) 2 mg IVP EDNOW ONE Stop: 08/31/18 13:45 Last Admin: 08/31/18 14:13 Dose: Not Given Point of Care Test Results: Chemistry 08/31/18 11:59 POC Troponin I 0.00 ng/mL ng/mL (0.00-0.08) General Time Seen by Provider: 08/31/18 11:45 Initial Vital Signs: Initial Vital Signs Temperature (C) 36.5 C 08/31/18 11:24 Heart Rate 76 08/31/18 11:24 Respiratory Rate 24 H 08/31/18 11:24 Blood Pressure 149/78 H 08/31/18 11:24 O2 Sat (%) 96 08/31/18 11:24 O2 Delivery Mode Nasal Cannula O2 (L/minute) 3 Allergies/Adverse Reactions: No Known Allergies Allergy (Unverified 08/20/18 12:49) Home Medications: Medication Instructions Recorded Acetaminophen [Tylenol ES 500 mg 1,000 mg PO Q6 PRN 08/20/18 (*)] Albuterol [Proventil Inhaler HFA 2 puffs IH Q4H PRN 08/20/18 (*)] Aspirin [Aspirin 81mg (*)] 81 mg PO DAILY 08/20/18 Bisacodyl [Dulcolax] 10 mg RC DAILY PRN 08/20/18 Cholecalciferol Vit D3 [Vitamin D3 5,000 units PO DAILY 08/20/18 2000 units tab (OTC)] Clotrimazole 1% [Lotrimin 1%] 1 nadia TOP BID PRN 08/20/18 Diclofenac Sodium 1% [Voltaren Gel 1 gm TP Q6 PRN 08/20/18 (*)] Docusate Sodium [Colace 100 MG (*)] 100 mg PO Q2D@08/20/18 Gabapentin [Neurontin 100 MG (*)] 200 mg PO BID 08/20/18 Herbals/Supplements -Info Only 1 ea PO DAILY 08/20/18 Hydrocortisone 2.5% 1 nadia TP BID PRN 08/20/18 [Hydrocortisone 2.5% cream (*)] Levothyroxine [Synthroid 88 mcg 88 mcg PO DAILY@08/20/18 (*)] Losartan Potassium 100 mg PO DAILY 08/20/18 Mirtazapine [Remeron] 15 mg PO HS 08/20/18 Polyethylene Glycol 3350 [Miralax 17 gm PO Q2D@08/20/18 17 gm (*)] Pravastatin Sodium [Pravachol] 40 mg PO HS 08/20/18 Sodium Chloride [Saline Nose [place]] 1 spray NS Q4 PRN 08/20/18 Umeclidinium Brm/Vilanterol Tr 1 each IH DAILY 08/20/18 [Anoro Ellipta 62.5-25 Mcg INH] amLODIPine BESYLATE [Norvasc 10 mg 10 mg PO DAILY 08/20/18 (*)] Acetylcysteine 10% [Acetylcysteine 2 ml IH Q6HRS #30 vial 08/25/18 10% Ih/Po] Albuterol [Proventil Neb] 3 ml IH QID #30 deyvial 08/25/18 Furosemide [Lasix 20 MG (*)] 20 mg PO DAILY tab 08/25/18 guaiFENesin [Mucinex 600 MG (*)] 600 mg PO BID tab.er 08/25/18 traMADol [Ultram 50 mg (*)] 50 mg PO BID PRN tab 08/25/18 Benzonatate 200 mg PO TID PRN 08/31/18 Ipratropium/Albuterol [Duoneb (*)] 3 ml IH Q6HRS 08/31/18 methylPREDNISolone 4 mg PO AD 08/31/18 [Methylprednisolone] Departure - Departure Disposition: [facility] Inpatient Acute Clinical Impression: Dyspnea Qualifiers: Dyspnea type: shortness of breath Qualified Code(s): R06.02 - Shortness of breath Fatigue Qualifiers: Fatigue type: other Qualified Code(s): R53.83 - Other fatigue Condition: Fair Report Scribed for: Jocelyn Brooke Report Scribed by: Ayah Waldron Date of Report: 08/31/18 Time of Report: 13:41
[2018-08-31] MEDS ORDERED: NS 2,200 ML IV ONE (13:01)
[2018-08-31] MEDS ORDERED: methylPREDNISolone SOD SUCC 125 MG/2 ML VIAL IVP ONE (13:44)
[2018-08-31] MEDS ORDERED: IPRATROPIUM/ALBUTEROL 3 ML DEYVIAL IH ONE (13:44)
[2018-08-31] MEDS ORDERED: IOHEXOL 350mgI/ML (OMNIPAQUE) 150 ML BTL IV ONE (14:52)
[2018-08-31] MEDS ORDERED: oxyCODONE IR 5 MG TAB PO PRN (15:12)
[2018-08-31] MEDS ORDERED: HYDROCODONE/APAP 5/325 TAB PO PRN (15:12)
[2018-08-31] MEDS ORDERED: ACETAMINOPHEN 325 MG TAB PO PRN (15:12)
[2018-08-31] MEDS ORDERED: ONDANSETRON DISINTEGRATING 4 MG TAB PO PRN (15:12)
[2018-08-31] MEDS ORDERED: ONDANSETRON 4 MG/2 ML VIAL IVP PRN (15:12)
[2018-08-31] MEDS ORDERED: PROMETHAZINE HCL 25 MG/ML INJ IVP PRN (15:12)
[2018-08-31] MEDS ORDERED: SODIUM CL NASAL 45 ML BTL NS PRN (15:14)
[2018-08-31] MEDS ORDERED: BISACODYL 10 MG SUPP PR PRN (15:14)
[2018-08-31] MEDS ORDERED: HYDROCORTISONE 2.5% 30 GM CRTUBE TP PRN (15:14)
[2018-08-31] MEDS ORDERED: ACETAMINOPHEN 500 MG TAB PO PRN (15:14)
[2018-08-31] MEDS ORDERED: DICLOFENAC SODIUM 1% 100 GM GEL TP PRN (15:14)
[2018-08-31] MEDS ORDERED: traMADol 50 MG TAB PO PRN (15:14)
[2018-08-31] MEDS ORDERED: CLOTRIMAZOLE 1% 15 GM CRTUBE TP PRN (15:14)
--- NOTE | 2018-08-31 16:03 | PDGENHP ---
History and Physical - Chief Complaint sob/chest pain - History of Present Illness 87 yo F with PMH that includes COPD and chronic hypoxic respiratory failure chronically on 4L of oxygen presenting from assisted living with continued sob, significant fatigue and an episode of chest pain this morning that since resolved. She notes that she had been hospitalized here last week and felt better at the time of discharge but still felt quite weak and fatigued at that time and since going home that continued to worsen to the point where she felt she needed to come back to the hospital today. She states she has had some chills but no fever, has had cough that is not productive and overall felt poorly. She has not had leg swelling or pain. She was seen by Dr. Wilkinson at her last hospitalization for significant mucus plugging with LLL collapse and underwent bronchoscopy prior to discharge with removal of significant amounts of mucus. She was diagnosed with coronavirus during that hospitalization and treated for presumed viral pneumonia. In ER a repeat CTA was performed today revealing small volume PE and resolution of prior LLL collapse and improved mucus plugging. History Information - Allergies/Home Medication List Allergies/Adverse Reactions: No Known Allergies Allergy (Unverified 08/20/18 12:49) Home Medications: Acetaminophen [Tylenol ES 500 mg (*)] 1,000 mg PO Q6 PRN 08/20/18 [Last Taken Unknown] Albuterol [Proventil Inhaler HFA (*)] 2 puffs IH Q4H PRN 08/20/18 [Last Taken Unknown] Aspirin [Aspirin 81mg (*)] 81 mg PO DAILY 08/20/18 [Last Taken 08/20/18] Bisacodyl [Dulcolax] 10 mg RC DAILY PRN 08/20/18 [Last Taken Unknown] Cholecalciferol Vit D3 [Vitamin D3 2000 units tab (OTC)] 5,000 units PO DAILY [Last Taken 08/20/18] Clotrimazole 1% [Lotrimin 1%] 1 nadia TOP BID PRN 08/20/18 [Last Taken Unknown] Diclofenac Sodium 1% [Voltaren Gel (*)] 1 gm TP Q6 PRN 08/20/18 [Last Taken Unknown] Docusate Sodium [Colace 100 MG (*)] 100 mg PO Q2D@21 08/20/18 [Last Taken ] Gabapentin [Neurontin 100 MG (*)] 200 mg PO BID 08/20/18 [Last Taken 08/20/18] Herbals/Supplements -Info Only 1 ea PO DAILY 08/20/18 [Last Taken Unknown] Hydrocortisone 2.5% [Hydrocortisone 2.5% cream (*)] 1 nadia TP BID PRN 08/20/18 [ Last Taken Unknown] Levothyroxine [Synthroid 88 mcg (*)] 88 mcg PO DAILY@08/20/18 [Last Taken ] Losartan Potassium 100 mg PO DAILY 08/20/18 [Last Taken 08/20/18] Mirtazapine [Remeron] 15 mg PO HS 08/20/18 [Last Taken 08/18/18] Polyethylene Glycol 3350 [Miralax 17 gm (*)] 17 gm PO Q2D@09 08/20/18 [Last Taken 08/20/18] Pravastatin Sodium [Pravachol] 40 mg PO HS 08/20/18 [Last Taken 08/18/18] Sodium Chloride [Saline Nose [place]] 1 spray NS Q4 PRN 08/20/18 [Last Taken Unknown] Umeclidinium Brm/Vilanterol Tr [Anoro Ellipta 62.5-25 Mcg INH] 1 each IH DAILY 08/20/18 [Last Taken 08/19/18] amLODIPine BESYLATE [Norvasc 10 mg (*)] 10 mg PO DAILY 08/20/18 [Last Taken ] Benzonatate 200 mg PO TID PRN 08/31/18 [Last Taken Unknown] Ipratropium/Albuterol [Duoneb (*)] 3 ml IH Q6HRS 08/31/18 [Last Taken Unknown] methylPREDNISolone [Methylprednisolone] 4 mg PO AD 08/31/18 [Last Taken 06:30] I have personally reviewed and updated: family history, medical history, social history, surgical history - Past Medical History atrial fibrillation (persistent), COPD, hypertension Additional medical history: chronic hypoxic respiratory failure requiring 4L at baseline. hypothyroid - Surgical History Reports: appendectomy, cholecystectomy Additional surgical history: TKA. shoulder surgery - Family History Positive for: non-pertinent - Social History Smoking Status: Former smoker (quit 25 years ago) Alcohol Use: None Drug Use: None Additional social history: , 2 children living in [place], resides at [facility] living Review of Systems Review of Systems: ROS: 10pt was reviewed & negative except for what was stated in HPI & below Physical Exam Physical Exam: Temp Pulse Resp BP Pulse Ox 36.5 C 66 16 127/71 H 99 08/31/18 11:24 08/31/18 14:00 08/31/18 14:00 08/31/18 14:00 08/31/18 14:00 Constitutional: appears nourished, uncomfortable Eyes: PERRL, anicteric sclera Ears, Nose, Mouth, Throat: moist mucous membranes, hearing normal Cardiovascular: regular rate and rhythym, systolic murmur, No edema Respiratory: reduced air movement, inspiratory crackles, respiratory distress Gastrointestinal: normoactive bowel sounds, soft, non-tender abdomen Genitourinary: no bladder tenderness Skin: warm, normal color Musculoskeletal: full muscle strength Neurologic: AAOx3 Psychiatric: interacting appropriately, not anxious, not encephalopathic Lab Data & Imaging Review 08/31/18 11:55 08/31/18 11:55 WBC 17.18 10^3/uL (3.80-9.50) H 08/31/18 11:55 RBC 4.30 10^6/uL (4.18-5.33) 08/31/18 11:55 Hgb 13.1 g/dL (12.6-16.3) 08/31/18 11:55 Hct 39.1 % (38.0-47.0) 08/31/18 11:55 MCV 90.9 fL (81.5-99.8) 08/31/18 11:55 MCH 30.5 pg (27.9-34.1) 08/31/18 11:55 MCHC 33.5 g/dL (32.4-36.7) 08/31/18 11:55 RDW 15.3 % (11.5-15.2) H 08/31/18 11:55 Plt Count 333 10^3/uL (150-400) 08/31/18 11:55 MPV 9.6 fL (8.7-11.7) 08/31/18 11:55 Neut % (Auto) Not Reported 08/31/18 11:55 Lymph % (Auto) Not Reported 08/31/18 11:55 [place] % (Auto) Not Reported 08/31/18 11:55 Eos % (Auto) Not Reported 08/31/18 11:55 Baso % (Auto) Not Reported 08/31/18 11:55 Nucleat RBC Rel Count Not Reported 08/31/18 11:55 Absolute Neuts (auto) Not Reported 08/31/18 11:55 Absolute Lymphs (auto) Not Reported 08/31/18 11:55 Absolute Monos (auto) Not Reported 08/31/18 11:55 Absolute Eos (auto) Not Reported 08/31/18 11:55 Absolute Basos (auto) Not Reported 08/31/18 11:55 Absolute Nucleated RBC Not Reported 08/31/18 11:55 Immature Gran % Not Reported 08/31/18 11:55 Seg Neutrophils % 83.0 % 08/31/18 11:55 Band Neutrophils % 1.0 % 08/31/18 11:55 Lymphocytes % 9.0 % 08/31/18 11:55 Monocytes % 5.0 % 08/31/18 11:55 Eosinophils % 0.0 % 08/31/18 11:55 Basophils % 0.0 % 08/31/18 11:55 Metamyelocytes % 1.0 % 08/31/18 11:55 Myelocytes % 1.0 % 08/31/18 11:55 Promyelocytes % 0.0 % 08/31/18 11:55 Blast Cells % 0.0 % 08/31/18 11:55 Immature Gran # Not Reported 08/31/18 11:55 Absolute Seg Neuts 14.26 10^3/uL (1.70-6.50) H 08/31/18 11:55 Absolute Band Neuts 0.17 10^3/uL (0.00-0.70) 08/31/18 11:55 Absolute Lymphocytes 1.55 10^3/uL (1.00-3.00) 08/31/18 11:55 Absolute Monocytes 0.86 10^3/uL (0.30-0.80) H 08/31/18 11:55 Absolute Eosinophils 0.00 10^3/uL (0.03-0.40) L 08/31/18 11:55 Absolute Basophils 0.00 10^3/uL (0.02-0.10) L 08/31/18 11:55 Absolute Metamyelocyte 0.17 10^3/mL (0.00-0.00) H 08/31/18 11:55 Absolute Myelocytes 0.17 10^3/mL (0.00-0.00) H 08/31/18 11:55 Absolute Promyelocytes 0.00 10^3/uL (0.00-0.00) 08/31/18 11:55 Absolute Plasma Cells 0.00 10^3/uL (0.00-0.00) 08/31/18 11:55 Nucleated RBCs 0 /100 WBC (0-0) 08/31/18 11:55 Absolute Blast Cells 0.00 10^3/uL (0.00-0.00) 08/31/18 11:55 Plasma Cells % 0.0 % 08/31/18 11:55 Platelet Estimate ADEQUATE (ADEQ) 08/31/18 11:55 Echinocytes 2+ H 08/31/18 11:55 Elliptocytes 1+ H 08/31/18 11:55 PT REJ 08/31/18 14:15 INR REJ 08/31/18 14:15 APTT REJ 08/31/18 14:15 D-Dimer REJ 08/31/18 14:15 VBG Lactic Acid 3.1 mmol/L (0.7-2.1) H 08/31/18 11:59 Sodium 138 mEq/L (135-145) 08/31/18 11:55 Potassium 4.2 mEq/L (3.5-5.2) 08/31/18 11:55 Chloride 105 mEq/L (97-110) 08/31/18 11:55 Carbon Dioxide 22 mEq/l (22-31) 08/31/18 11:55 Anion Gap 11 mEq/L (6-14) 08/31/18 11:55 BUN 43 mg/dL (7-23) H 08/31/18 11:55 Creatinine 1.1 mg/dL (0.6-1.0) H 08/31/18 11:55 Estimated GFR 47 08/31/18 11:55 Glucose 103 mg/dL (70-100) H 08/31/18 11:55 Calcium 9.9 mg/dL (8.5-10.4) 08/31/18 11:55 Total Bilirubin 0.7 mg/dL (0.1-1.4) 08/31/18 13:46 POC Troponin I 0.00 ng/mL (0.00-0.08) 08/31/18 11:59 Specimen Hemolysis [employer] SERVICES MANAGER 08/31/18 13:46 Urine Color PALE YELLOW 08/31/18 13:46 Urine Appearance CLEAR 08/31/18 13:46 Urine pH 6.0 (5.0-7.5) 08/31/18 13:46 Ur Specific [place] 1.005 (1.002-1.030) 08/31/18 13:46 Urine Protein NEGATIVE (NEGATIVE) 08/31/18 13:46 Urine Ketones NEGATIVE (NEGATIVE) 08/31/18 13:46 Urine Blood NEGATIVE (NEGATIVE) 08/31/18 13:46 Urine Nitrate NEGATIVE (NEGATIVE) 08/31/18 13:46 Urine Bilirubin NEGATIVE (NEGATIVE) 08/31/18 13:46 Urine Urobilinogen NEGATIVE EU (0.2-1.0) 08/31/18 13:46 Ur Leukocyte Esterase NEGATIVE (NEGATIVE) 08/31/18 13:46 Urine RBC 1-3 /hpf (0-3) 08/31/18 13:46 Urine WBC 1-3 /hpf (0-3) 08/31/18 13:46 Ur Epithelial Cells NONE SEEN /lpf (NONE-1+) 08/31/18 13:46 Urine Glucose NEGATIVE (NEGATIVE) 08/31/18 13:46 Visualized and Interpreted Chest x-ray results: Yes Chest X-Ray results: no infiltrate Visualized and Interpreted imaging results: Yes Interpretation: Chest CTA: small volume subsegmental PE bilaterally, resolution of collapse of LLL, improved mucus plugging, extensive thrombus desc thoracic aorta Visualized and Interpreted EKG results: Yes EKG Interpretation: Positive for: normal sinsus rhythm Assessment & Plan Assessment: Dyspnea (Acute) Fatigue (Acute) 87 yo F with hx of COPD and chronic hypoxic respiratory failure on 4L oxygen chronically presenting with increased sob and chest pain found to have PE # acute bilateral PE: small volume subsegmental PE but presumably the etiology for her continued sxs, will start lovenox for now and likely transition to NOAC tomorrow so long as no issues develop overnight. She is HD stable however by PESI score she is high risk. Will monitor overnight on tele. # chronic hypoxic respiratory failure: with sob present on presentation however o2 sats at baseline on her home oxygen level # severe sepsis vs non infectious SIRS: patient meeting criteria for severe sepsis with leukocytosis, tachypnea and lactate of 3.1 on arrival, suspect this is a non infectious SIRS due to PE given CT showing PE, no pna and no other infectious source noted. Will get 1 dose of levaquin, cultures drawn and will not continue abx at this time unless fever or e/o infection develop # copd, severe: will provide scheduled duonebs, prn albuterol. She has been on medrol dose pack and will transition to equivalent prednisone dose for now # persistent a fib: will continue home meds, monitor on tele # descending thoracic aorta thrombus: noted incidentally on imaging, AC for above # recent coronavirus/pna: respiratory panel pending # DNR # IP status, will likely require > 48 hours stay given severity of her sxs and new dx of PE Patient new to my care. Old records reviewed and summarized as above. Care plan reviewed with ER doctor as above.
[2018-08-31] MEDS ORDERED: levOFLOXACIN 750 MG/DEXTROSE/150 ML BAG IV ONE (16:20)
--- NOTE | 2018-08-31 17:23 | ASMTCMCOM ---
CM Note CM Note Notes: Patient returns to ED from [facility] after being discharged from this facility (return to ) on Friday 08/25. Return ED visit discussed with Brock, transitional child care center assistant director #[id number]. Per chart review, patient returned to [facility] 08/25 after Mary (from ) came to evaluate patient and accepted patient to return to [place] level of care. Today patient presents with increasing SOB, wekness and "just not feeling well". She has been admitted to status after CTA and confirmation of PE. This CM has has met with patient and contacted her daughter Jessica to update and inform her of plans for admission. Jessica expresses concerns regarding patient's history of a GI bleed when treated for a blood clot/PE in the past. I assured her that we would make note of this and I have informed Dr. De La Cruz of this history. I have LM with Chanda Arias, Glassware Finisher at [facility] to inform her of patient's diagnosis and admission and have updated Brock (TC) as well. CM to follow with discharge planning Date Signed: 08/31/2018 05:23 PM Electronically Signed By:Taylor العلي RN
[2018-08-31] MEDS: predniSONE 20 MG TAB PO SCH (17:53)
[2018-08-31] MEDS: ENOXAPARIN 80 MG/0.8 ML SYR SC SCH (20:33)
[2018-08-31] MEDS: ALBUTEROL 3 ML DEYVIAL IH PRN (20:35)
[2018-08-31] MEDS: ACETYLCYSTEINE 10% IH/PO 4 ML VIAL IH SCH (20:35)
[2018-08-31] MEDS: IPRATROPIUM/ALBUTEROL 3 ML DEYVIAL IH SCH ×2 (20:37→22:09)
[2018-08-31] MEDS: LEVOTHYROXINE 88 MCG TAB PO SCH (20:57)
[2018-08-31] MEDS ORDERED: BENZONATATE 100 MG CAP PO PRN (21:00)
[2018-08-31] MEDS: MIRTAZAPINE 15 MG TAB PO SCH (22:54)
[2018-08-31] MEDS: guaiFENesin 600 MG TAB.ER PO SCH (22:54)
[2018-08-31] MEDS: GABAPENTIN 100 MG CAP PO SCH (22:54)
[2018-08-31] MEDS: PRAVASTATIN SODIUM 40 MG TAB PO SCH (22:55)
[2018-08-31] MEDS: DOCUSATE SODIUM 100 MG CAP PO SCH (23:48)
[2018-09-01] MEDS: ACETYLCYSTEINE 10% IH/PO 4 ML VIAL IH SCH ×5 (00:53→21:45)
[2018-09-01] MEDS: ALBUTEROL 3 ML DEYVIAL IH PRN ×2 (05:34→21:45)
[2018-09-01] MEDS: IPRATROPIUM/ALBUTEROL 3 ML DEYVIAL IH SCH ×4 (05:44→21:49)
[2018-09-01 05:49] LABS: PLATELET COUNT 309 10^3/uL (150-400)
[2018-09-01] MEDS ORDERED: ENOXAPARIN 30 MG/0.3 ML SYR SC SCH (09:00)
--- NOTE | 2018-09-01 09:23 | PDMN ---
Medical Necessity Medical necessity: Pt meets IP criteria as of 08/31/2018 per and MCG M-290 ( Pulmonary Embolism); est los > 2 mn for ongoing tx and management of bilateral pulmonary embolisms in the setting of COPD and chronic hypoxic respiratory failure, pt also with SIRS criteria (leukocytosis, tachypnea, and lactate of 3.1 )
[2018-09-01] MEDS: ENOXAPARIN 80 MG/0.8 ML SYR SC SCH ×2 (09:58→20:24)
[2018-09-01] MEDS: GABAPENTIN 100 MG CAP PO SCH ×2 (10:03→20:23)
[2018-09-01] MEDS: guaiFENesin 600 MG TAB.ER PO SCH ×2 (10:03→20:24)
[2018-09-01] MEDS: CHOLECALCIFEROL VIT D3 2,000 UNITS TAB/CAP PO SCH (10:03)
[2018-09-01] MEDS: ASPIRIN 81 MG CHEWABLE TAB PO SCH (10:04)
[2018-09-01] MEDS: predniSONE 20 MG TAB PO SCH (10:04)
[2018-09-01] MEDS: Umeclidinium Brm/Vilanterol Tr [Anoro Ellipta 62.5-25 Mcg Inh] IH SCH (10:19)
[2018-09-01] MEDS ORDERED: BISACODYL 10 MG SUPP PR PRN (10:44)
[2018-09-01] MEDS ORDERED: MAGNESIUM HYDROXIDE 30 ML UDCUP PO PRN (10:44)
[2018-09-01] MEDS ORDERED: LACTULOSE 20 GM/30 ML UDCUP PO PRN (10:44)
[2018-09-01] MEDS: POLYETHYLENE GLYCOL 3350 17 GM PKT PO PRN (10:53)
[2018-09-01] MEDS ORDERED: predniSONE 20 MG TAB PO ONE (13:08)
[2018-09-01] MEDS ORDERED: NS W/ 20 KCl/L 1,000 ML IV SCH (13:15)
--- NOTE | 2018-09-01 13:18 | HOSPPROG ---
Hospitalist Progress Note Assessment/Plan: 87 yo F with hx of COPD and chronic hypoxic respiratory failure on 4L oxygen chronically presenting with increased sob and chest pain found to have small volume PE and COPD exacerbation. She was recently admitted and was treated for coronovirus infection and COPD exacerbation. Imaging is not consistent with any recurrent infection. #Acute on chronic Respiratory Failure, improving -work of breathing is better since admission -Etiology is likely multifactorial and due to COPD-E and Acute PE #Acute PE, small volume -Lovenox treatment -Transition to Warfarin -Fall risk #COPD-E -Long standing COPD -Failed Medrol Dose pack -will increase Prednisone to 60mg with slow taper -scheduled and PRN nebs #Persistent Afib, was not on AC on admission -home meds -AC per above # Descending thoracic aorta thrombus: noted incidentally on imaging -AC per above -No signs or symptoms of thrombus progression or occlusion -unclear source, possibly Afib. Will obtain TTE #Severe sepsis vs non infectious SIRS on admission -patient meeting criteria for severe sepsis with leukocytosis, tachypnea and lactate of 3.1 on arrival, suspect this is a non infectious SIRS due to PE given CT showing PE, no pna and no other infectious source noted. Will get 1 dose of levaquin, cultures drawn and will not continue abx at this time unless fever or e/o infection develop -no indication for abx at this time # DNR # IP status, cont inpt care PT/OT Subjective: resp hebert she is about the same. no improvemt but not worse. still with some SOB, no cp, no leg swelling or pain Objective: Vital Signs Temp Pulse Resp BP Pulse Ox 36.4 C 65 18 102/48 L 93 09/01/18 11:36 09/01/18 11:36 09/01/18 11:36 09/01/18 11:36 09/01/18 11:36 Laboratory Results 09/01/18 05:03 09/01/18 05:03 08/31/18 09/01/18 09/02/18 05:59 05:59 05:59 Intake Total 250 Balance 250 PT REJ 08/31/18 14:15 INR REJ 08/31/18 14:15 - Physical Exam Constitutional: chronically ill appearing Eyes: PERRL, EOMI Ears, Nose, Mouth, Throat: moist mucous membranes, hearing normal Cardiovascular: regular rate and rhythym, No edema Respiratory: no respiratory distress, no rales or rhonchi, reduced air movement , expiratory wheeze Gastrointestinal: normoactive bowel sounds Skin: warm Musculoskeletal: generalized weakness Neurologic: AAOx3 Psychiatric: interacting appropriately, not anxious, not encephalopathic Lymph, Heme, Immunologic: No petechiae ICD10 Worksheet Patient Problems: Problems Problem Status Onset Dyspnea Acute Fatigue Acute Atelectasis of left lung Acute Chronic Disease Mgmt/Transitional Care Acute Chronic obstructive pulmonary disease with acute exacerbation Acute
--- NOTE | 2018-09-01 13:39 | CPEKG ---
Test Reason : OPEN Blood Pressure : / mmHG Vent. Rate : 069 BPM Atrial Rate : 069 BPM P-R Int : 153 ms QRS Dur : 092 ms QT Int : 451 ms P-R-T Axes : 059 -06 078 degrees QTc Int : 484 ms Sinus rhythm Probable anterior infarct, old Confirmed by Jocelyn Brooke ([id number]) on 09/01/2018 1:38:48 PM Referred By: PHYSICIAN ED Confirmed By:Jocelyn Brooke
--- NOTE | 2018-09-01 15:36 | ASMTCMCOM ---
CM Note CM Note Notes: Mary from [facility] called to check on patient. They do not do re-admits on weekend so she will follow up Tuesday, 09/04. Case Management will follow. Date Signed: 09/01/2018 03:35 PM Electronically Signed By:Flores Novoa RN
--- NOTE | 2018-09-01 15:46 | ECHO ---
[email or web address] [address] [address] Main: [phone] Fax: Transthoracic Echocardiogram Name: SUKHDEV RAE MR#: [id number] Study Date: 09/01/2018 Study Time: 02:06 PM Date of : 1930 Age: 87 year(s) Height: 157.5 cm (62 in.) Weight: 72.58 kg (160 lb.) BSA: 1.74 m2 Gender: Female Examination: Echo Indication: CHF? THROMBUS? Image Quality: Technically Difficult Contrast: Requested by: Seamus Vega BP: 102 mmHg/48 mmHg Heart Rate: Rhythm: Indication: CHF? THROMBUS? Procedure Staff Core Sucker: Sandra Young [facility] Reading Physician: Tatum Maldonado MD Requesting Provider: Conclusions: Normal size left ventricle. Mild concentric LV hypertrophy. Normal global systolic LV function. EF is 68 %. No regional wall motion abnormality. Unable to assess diastolic dysfunction. Normal size right ventricle. Normal RV function. Trivial to mild aortic valve regurgitation. No aortic valve stenosis is present. Mild tricuspid regurgitation is present. Right ventricular systolic pressure measures 31mmHg. There is no previous echocardiogram for comparison. Measurements: Chambers Valvular Assessment AV/MV Valvular Assessment TV/PV Normal Normal Normal Name Value Range Name Value Range Name Value Range Ao Hoda (MM): 2.9 cm (2.2 cm-3.7 AV Vmax: 2.06 m/s (1 m/s-1.7 TR Vmax: 2.57 mm/s ( - ) cm) m/s) TR PGmax: 26 mmHg ( - ) IVSd (2D): 1.3 cm (0.6 cm-1.1 AV maxP mmHg ( - ) syst. PAP: 31 mmHg ( - ) cm) AV meanP mmHg ( - ) PV Vmax: 1.37 m/s (0.6 m/s-0.9 LVDd (2D): 3.6 cm (3.9 cm-5.3 LVOT Vmax: 1.16 m/s (0.7 m/s-1.1 m/s) cm) m/s) PV PGmax: 8 mmHg ( - ) LVDs (2D): 2.5 cm (2.1 cm-4 SONIA (Vmax): 1.4 cm2 ( - ) cm) SONIA (VTI): 1.7 cm ( - ) LVPWd (2D): 1.0 cm ( - ) MV E Vmax: 1.12 m/s ( - ) LVOTd 1.8 cm 1.8 cm mm MV A Vmax: 1.00 m/s ( - ) LVEF (BP): 68 % (>=55 %) MV E/A: 1.12 ( - ) Patient: SUKHDEV RAE Study Date: 09/01/2018 Page 1 of 2 02:06 PM RVDd(2D): 3.2 cm (1.9 cm-3.8 cmmm) Continued Measurements: Chambers Valvular Assessment AV/MV Valvular Assessment TV/PV Name Value Name Value Name Value LADs: 3.0 cm MV DecTime: 225 m/s CVP (est.): 5 mmHg LADs Lon.9 cm MV E' Septal: 0.06 m/s LA Area: 18.8 cm2 MV E/E' Septal: 19.10 LA Volume: 53 ml MV E/E' Lateral: 13.10 LA Volume Index: 30.5 ml/m2 TAPSE: 3.3 cm RA Area: 13.7 cm2 Additional Vessels Name Value Ao Ascendin.1 cm Findings: Left Ventricle: Normal size left ventricle. Mild concentric LV hypertrophy. Normal global systolic LV function. EF is 68 %. No regional wall motion abnormality. Unable to assess diastolic dysfunction. Right Ventricle: Normal size right ventricle. Normal RV function. Left Atrium: The left atrium is normal in size. Right Atrium: The right atrium is normal in size. Mitral Valve: There is mild thickening of the mitral valve leaflets. Mild mitral annular calcification. There is no mitral valve regurgitation. No mitral stenosis is present. Aortic Valve: The aortic valve is tri-leaflet. Mild aortic cusp calcification is noted. Trivial to mild aortic valve regurgitation. Mean aortic valve gradient 8. No aortic valve stenosis is present. Tricuspid Valve: The tricuspid valve appears normal. Mild tricuspid regurgitation is present. Right ventricular systolic pressure measures 31mmHg. Pulmonic Valve: Pulmonary valve not well visualized. Trivial to mild pulmonic valve regurgitation. Aorta: Normal size aortic root measuring 2.9 cm. Normal size ascending aorta measuring 3.1 cm. IVC: Normal size and course of the IVC. Pericardium: No pericardial effusion. (No Signature Object) Patient: SUKHDEV RAE Study Date: 09/01/2018 Page 2 of 2 02:06 PM [id number]
[2018-09-01] MEDS ORDERED: WARFARIN SODIUM 5 MG TAB PO ONE (16:00)
[2018-09-01] MEDS: LEVOTHYROXINE 88 MCG TAB PO SCH (19:03)
[2018-09-01] MEDS: SENNOSIDES/DOCUSATE SODIUM TAB PO SCH (20:23)
[2018-09-01] MEDS: PRAVASTATIN SODIUM 40 MG TAB PO SCH (20:24)
[2018-09-01] MEDS: MIRTAZAPINE 15 MG TAB PO SCH (20:24)
[2018-09-01] MEDS ORDERED: MELATONIN 3 MG TAB ONE (22:04)
[2018-09-01] MEDS: MELATONIN 3 MG TAB PO SCH (22:19)
[2018-09-02] MEDS: ALBUTEROL 3 ML DEYVIAL IH PRN (05:56)
[2018-09-02] MEDS: ACETYLCYSTEINE 10% IH/PO 4 ML VIAL IH SCH ×4 (05:56→21:56)
[2018-09-02] MEDS: IPRATROPIUM/ALBUTEROL 3 ML DEYVIAL IH SCH ×4 (05:59→21:56)
[2018-09-02] MEDS: GABAPENTIN 100 MG CAP PO SCH ×2 (09:47→20:16)
[2018-09-02] MEDS: predniSONE 20 MG TAB PO SCH (09:47)
[2018-09-02] MEDS: CHOLECALCIFEROL VIT D3 2,000 UNITS TAB/CAP PO SCH (09:48)
[2018-09-02] MEDS: ASPIRIN 81 MG CHEWABLE TAB PO SCH (09:48)
[2018-09-02] MEDS: guaiFENesin 600 MG TAB.ER PO SCH ×2 (09:48→20:16)
[2018-09-02] MEDS: SENNOSIDES/DOCUSATE SODIUM TAB PO SCH ×2 (09:49→20:16)
[2018-09-02] MEDS: POLYETHYLENE GLYCOL 3350 17 GM PKT PO SCH (09:49)
[2018-09-02] MEDS: ENOXAPARIN 80 MG/0.8 ML SYR SC SCH ×2 (09:50→20:15)
[2018-09-02] MEDS: Umeclidinium Brm/Vilanterol Tr [Anoro Ellipta 62.5-25 Mcg Inh] IH SCH (10:36)
--- NOTE | 2018-09-02 13:48 | HOSPPROG ---
Hospitalist Progress Note Assessment/Plan: 87 yo F with hx of COPD and chronic hypoxic respiratory failure on 4L oxygen chronically presenting with increased sob and chest pain found to have small volume PE and COPD exacerbation. She was recently admitted and was treated for coronovirus infection and COPD exacerbation. Imaging is not consistent with any recurrent infection. #Acute on chronic Respiratory Failure, improving -work of breathing is better since admission -Etiology is likely multifactorial and due to COPD-E and Acute PE #Acute PE, small volume -Lovenox treatment -Transition to Warfarin -Fall risk #COPD-E -Long standing COPD -Failed Medrol Dose pack -Increased Prednisone to 60mg. Likely taper tomorrow -scheduled and PRN nebs #Paroxysmal Afib, was not on AC on admission -home meds -AC per above # Descending thoracic aorta thrombus: noted incidentally on imaging -AC per above -No signs or symptoms of thrombus progression or occlusion -unclear source, possibly Afib. TTE unremarkable #Severe sepsis vs non infectious SIRS on admission -patient meeting criteria for severe sepsis with leukocytosis, tachypnea and lactate of 3.1 on arrival, suspect this is a non infectious SIRS due to PE given CT showing PE, no pna and no other infectious source noted. Received levaquin on admission, no further abx given -no indication for abx at this time # DNR # IP status, cont inpt care. cont care. Will need [facility], possibly at [facility] Will call family to update them this afternoon PT/OT Subjective: breathing is better but not significantly. no cp or sob. no leg swelling Objective: Vital Signs Temp Pulse Resp BP Pulse Ox 36.4 C 72 18 114/76 98 09/02/18 11:43 09/02/18 11:43 09/02/18 11:43 09/02/18 11:43 09/02/18 11:43 Laboratory Results 09/01/18 05:03 09/01/18 05:03 09/01/18 09/02/18 09/03/18 05:59 05:59 05:59 Intake Total 250 1515 Output Total 150 Balance 250 1515 -150 PT REJ 08/31/18 14:15 INR REJ 08/31/18 14:15 - Physical Exam Constitutional: no apparent distress Eyes: PERRL, EOMI Ears, Nose, Mouth, Throat: moist mucous membranes, hearing normal Cardiovascular: regular rate and rhythym, No edema Respiratory: reduced air movement, expiratory wheeze Gastrointestinal: normoactive bowel sounds Skin: warm Musculoskeletal: generalized weakness Neurologic: AAOx3 Psychiatric: interacting appropriately, not anxious, not encephalopathic Lymph, Heme, Immunologic: No petechiae ICD10 Worksheet Patient Problems: Problems Problem Status Onset Dyspnea Acute Fatigue Acute Atelectasis of left lung Acute Chronic Disease Mgmt/Transitional Care Acute Chronic obstructive pulmonary disease with acute exacerbation Acute
[2018-09-02 16:34] LABS: PLATELET COUNT 294 10^3/uL (150-400)
[2018-09-02 16:42] LABS: INR 1.47 (0.83-1.16)
[2018-09-02] MEDS ORDERED: WARFARIN SODIUM 3 MG TAB PO ONE (16:45)
[2018-09-02] MEDS: LEVOTHYROXINE 88 MCG TAB PO SCH (18:49)
[2018-09-02] MEDS: MIRTAZAPINE 15 MG TAB PO SCH (20:16)
[2018-09-02] MEDS: PRAVASTATIN SODIUM 40 MG TAB PO SCH (20:16)
[2018-09-02] MEDS: DOCUSATE SODIUM 100 MG CAP PO SCH (20:16)
[2018-09-02] MEDS: MELATONIN 3 MG TAB PO SCH (20:16)
[2018-09-03 05:01] LABS: PLATELET COUNT 250 10^3/uL (150-400)
[2018-09-03 05:09] LABS: INR 1.87 (0.83-1.16); PROTIME(PATIENT) 21.6 SEC (12.0-15.0)
[2018-09-03] MEDS: IPRATROPIUM/ALBUTEROL 3 ML DEYVIAL IH SCH ×4 (06:17→21:18)
[2018-09-03] MEDS: ACETYLCYSTEINE 10% IH/PO 4 ML VIAL IH SCH ×2 (06:18→10:56)
[2018-09-03] MEDS: CHOLECALCIFEROL VIT D3 2,000 UNITS TAB/CAP PO SCH (08:17)
[2018-09-03] MEDS: POLYETHYLENE GLYCOL 3350 17 GM PKT PO PRN (08:17)
[2018-09-03] MEDS: predniSONE 20 MG TAB PO SCH (08:18)
[2018-09-03] MEDS: guaiFENesin 600 MG TAB.ER PO SCH ×2 (08:19→20:56)
[2018-09-03] MEDS: ASPIRIN 81 MG CHEWABLE TAB PO SCH (08:20)
[2018-09-03] MEDS: GABAPENTIN 100 MG CAP PO SCH ×2 (08:20→20:56)
[2018-09-03] MEDS: SENNOSIDES/DOCUSATE SODIUM TAB PO SCH ×2 (08:21→21:30)
[2018-09-03] MEDS: ENOXAPARIN 80 MG/0.8 ML SYR SC SCH ×2 (08:21→20:56)
[2018-09-03] MEDS: Umeclidinium Brm/Vilanterol Tr [Anoro Ellipta 62.5-25 Mcg Inh] IH SCH (09:21)
[2018-09-03] MEDS ORDERED: FUROSEMIDE 20 MG TAB PO ONE (12:47)
--- NOTE | 2018-09-03 14:24 | HOSPPROG ---
Hospitalist Progress Note Assessment/Plan: 87 yo F with hx of COPD and chronic hypoxic respiratory failure on 4L oxygen chronically presenting with increased sob and chest pain found to have small volume PE and COPD exacerbation. She was recently admitted and was treated for coronovirus infection and COPD exacerbation. Imaging is not consistent with any recurrent infection. #Acute on chronic Respiratory Failure, improving -work of breathing is better since admission -Etiology is likely multifactorial and due to COPD-E and Acute PE #Acute PE, small volume -Lovenox treatment. Can stop Lovenox today -Cont Warfarin -Fall risk -She has a hx of GIB on Xarelto many years ago, details are not available. No recurrence since, but was taken off Xarelto. Will also start Protonix. #COPD-E -Long standing COPD -Failed Medrol Dose pack -Increased Prednisone to 60mg on admission. Weaning to 40mg starting tomorrow. Would do a slow taper. -scheduled and PRN nebs #Paroxysmal Afib, was not on AC on admission -home meds -AC per above # Descending thoracic aorta thrombus: noted incidentally on imaging -AC per above -No signs or symptoms of thrombus progression or occlusion -unclear source, possibly Afib. TTE unremarkable #Severe sepsis vs non infectious SIRS on admission -patient meeting criteria for severe sepsis with leukocytosis, tachypnea and lactate of 3.1 on arrival, suspect this is a non infectious SIRS due to PE given CT showing PE, no pna and no other infectious source noted. Received levaquin on admission, no further abx given -no indication for abx at this time # DNR # IP status, cont inpt care. cont care. Will need [facility], possibly at [facility] Will call family to update them this afternoon PT/OT Plan: She has some pedal edema today and will give one time Lasix. Will monitor Cr closely which has increased slightly. Its likely that her baseline is around 1.2 as it was this on 08/20/18. cont all other, Lovenox to stop tonight Family and pt aware and agree with plan to anticoagulate Subjective: no cp, no n/v. still with some SOB. Objective: Vital Signs Temp Pulse Resp BP Pulse Ox 36.4 C 68 18 114/51 L 100 09/03/18 12:00 09/03/18 12:00 09/03/18 12:00 09/03/18 12:00 09/03/18 12:00 Laboratory Results 09/03/18 04:45 09/02/18 15:30 09/02/18 09/03/18 09/04/18 05:59 05:59 05:59 Intake Total 1515 1650 Output Total 950 Balance 1515 700 PT 21.6 SEC (12.0-15.0) H 09/03/18 04:45 INR 1.87 (0.83-1.16) H 09/03/18 04:45 - Physical Exam Constitutional: no apparent distress Eyes: PERRL, EOMI Ears, Nose, Mouth, Throat: moist mucous membranes, hearing normal Cardiovascular: regular rate and rhythym, edema (trace LE edema) Respiratory: no respiratory distress, no rales or rhonchi, clear to auscultation Gastrointestinal: normoactive bowel sounds, soft, non-tender abdomen Skin: warm Musculoskeletal: generalized weakness Neurologic: AAOx3 Psychiatric: interacting appropriately, not anxious, not encephalopathic Lymph, Heme, Immunologic: No petechiae ICD10 Worksheet Patient Problems: Problems Problem Status Onset Dyspnea Acute Fatigue Acute Atelectasis of left lung Acute Chronic Disease [facility]/Transitional Care Acute Chronic obstructive pulmonary disease with acute exacerbation Acute
[2018-09-03] MEDS: PANTOPRAZOLE SODIUM 40 MG TAB PO SCH (14:51)
[2018-09-03] MEDS ORDERED: WARFARIN SODIUM 3 MG TAB PO SCH (16:00)
[2018-09-03] MEDS: LEVOTHYROXINE 88 MCG TAB PO SCH (18:45)
[2018-09-03] MEDS: MIRTAZAPINE 15 MG TAB PO SCH (20:56)
[2018-09-03] MEDS: PRAVASTATIN SODIUM 40 MG TAB PO SCH (20:56)
[2018-09-03] MEDS: MELATONIN 3 MG TAB PO SCH (20:56)
[2018-09-04 04:57] LABS: PLATELET COUNT 241 10^3/uL (150-400)
[2018-09-04 05:05] LABS: INR 2.68 (0.83-1.16); PROTIME(PATIENT) 28.4 SEC (12.0-15.0)
[2018-09-04] MEDS: IPRATROPIUM/ALBUTEROL 3 ML DEYVIAL IH SCH ×4 (05:23→20:55)
[2018-09-04] MEDS: CHOLECALCIFEROL VIT D3 2,000 UNITS TAB/CAP PO SCH (09:42)
[2018-09-04] MEDS: SENNOSIDES/DOCUSATE SODIUM TAB PO SCH ×2 (09:42→22:06)
[2018-09-04] MEDS: predniSONE 20 MG TAB PO SCH (09:43)
[2018-09-04] MEDS: ASPIRIN 81 MG CHEWABLE TAB PO SCH (09:43)
[2018-09-04] MEDS: GABAPENTIN 100 MG CAP PO SCH ×2 (09:44→20:54)
[2018-09-04] MEDS: PANTOPRAZOLE SODIUM 40 MG TAB PO SCH (09:44)
[2018-09-04] MEDS: guaiFENesin 600 MG TAB.ER PO SCH ×2 (09:44→20:54)
[2018-09-04] MEDS: Umeclidinium Brm/Vilanterol Tr [Anoro Ellipta 62.5-25 Mcg Inh] IH SCH (10:20)
[2018-09-04] MEDS: POLYETHYLENE GLYCOL 3350 17 GM PKT PO SCH (10:23)
--- NOTE | 2018-09-04 15:27 | HOSPPROG ---
Hospitalist Progress Note Assessment/Plan: 87 yo F with hx of COPD and chronic hypoxic respiratory failure on 4L oxygen chronically presenting with increased sob and chest pain found to have small volume PE and COPD exacerbation. She was recently admitted and was treated for coronovirus infection and COPD exacerbation. Imaging is not consistent with any recurrent infection. #Acute on chronic Respiratory Failure, improving -work of breathing is better since admission -Etiology is likely multifactorial and due to COPD-E and Acute PE #Acute PE, small volume. INR therapeutic, so can stop lovenox. Has a history of GIB and so started on protonix. No melena/hematochezia. #COPD exacerbation. failed solumedrol and so prednisone increased to 60mg on admit. today down to 40, and lungs sound clear with good air movement and no increase in oxygen requirement. slow taper. -scheduled and PRN nebs -oxygen -prednisone taper #Paroxysmal Afib, was not on AC on admission. appears rate controlled currently -cont coumadin # Descending thoracic aorta thrombus: noted incidentally on imaging -AC per above -No signs or symptoms of thrombus progression or occlusion -unclear source, possibly Afib. TTE unremarkable #Severe sepsis vs non infectious SIRS on admission -patient meeting criteria for severe sepsis with leukocytosis, tachypnea and lactate of 3.1 on arrival, suspect this is a non infectious SIRS due to PE given CT showing PE, no pna and no other infectious source noted. Received levaquin on admission, no further abx given -no indication for abx at this time # DNR # IP status, cont inpt care. cont care. Will need HHC, possibly at [facility] PPX- SCDS, coumadin therapeutic Fluids- None Lytes- WNL Nutrition- regular cor- DNR Dispo- inpatient. PT recommending SNF so possible dispo tomorrow. Subjective: patient very fatigued today. shortness of breath mildly better but very tired. Objective: Vital Signs Temp Pulse Resp BP Pulse Ox 36.4 C 66 20 116/49 L 99 09/04/18 11:46 09/04/18 11:46 09/04/18 11:46 09/04/18 11:46 09/04/18 11:46 Laboratory Results 09/04/18 04:24 09/04/18 04:24 02/03/19 02/04/19 02/05/19 05:59 05:59 05:59 Intake Total 1650 1350 Output Total 950 1200 Balance 700 150 PT 28.4 SEC (12.0-15.0) H 09/04/18 04:24 INR 2.68 (0.83-1.16) H 09/04/18 04:24 - Physical Exam Constitutional: no apparent distress, appears nourished, not in pain Eyes: PERRL, anicteric sclera, EOMI Ears, Nose, Mouth, Throat: moist mucous membranes, hearing normal, ears appear normal, no oral mucosal ulcers Cardiovascular: regular rate and rhythym, no murmur, rub, or gallop Respiratory: no respiratory distress, no rales or rhonchi, clear to auscultation Gastrointestinal: normoactive bowel sounds, soft, non-tender abdomen, no palpable masses Genitourinary: no bladder fullness, no bladder tenderness, no renal bruits Skin: no rashes or abrasions, no fluctuance, no induration Musculoskeletal: full muscle strength, no muscle tenderness, normal joint ROM Neurologic: AAOx3, sensation intact bilaterally Psychiatric: interacting appropriately, not anxious, not encephalopathic, thought process linear Lymph, Heme, Immunologic: no cervical LAD, no supraclavicular LAD ICD10 Worksheet Patient Problems: Problems Problem Status Onset Dyspnea Acute Fatigue Acute Atelectasis of left lung Acute Chronic Disease [facility]/Transitional Care Acute Chronic obstructive pulmonary disease with acute exacerbation Acute
[2018-09-04] MEDS ORDERED: WARFARIN SODIUM 3 MG TAB PO ONE (16:00)
--- NOTE | 2018-09-04 16:51 | ASMTCMCOM ---
CM Note CM Note Notes: Spoke with patient's daughter, Jessica and she feels her mother is in need of SNF rehab. Spoke with PT/OT and they also feel the patient may need this before returning to [facility]. Patient and her daughter, Jessica (MDPOA) both would like patient to go to [facility]. A referral was sent to them today. Discharge plan is SNF rehab. We are awaiting [facility]'s response. CM will follow. Date Signed: 09/04/2018 04:50 PM Electronically Signed By:Gabriella Gonsales LCSW
[2018-09-04] MEDS: LEVOTHYROXINE 88 MCG TAB PO SCH (18:32)
[2018-09-04] MEDS: MELATONIN 3 MG TAB PO SCH (20:54)
[2018-09-04] MEDS: MIRTAZAPINE 15 MG TAB PO SCH (20:54)
[2018-09-04] MEDS: PRAVASTATIN SODIUM 40 MG TAB PO SCH (20:54)
[2018-09-04] MEDS: DOCUSATE SODIUM 100 MG CAP PO SCH (22:06)
[2018-09-05 05:38] LABS: INR 2.66 (0.83-1.16); PROTIME(PATIENT) 28.3 SEC (12.0-15.0)
[2018-09-05] MEDS: IPRATROPIUM/ALBUTEROL 3 ML DEYVIAL IH SCH ×4 (06:02→21:08)
[2018-09-05] MEDS: Umeclidinium Brm/Vilanterol Tr [Anoro Ellipta 62.5-25 Mcg Inh] IH SCH (08:36)
[2018-09-05] MEDS: guaiFENesin 600 MG TAB.ER PO SCH ×2 (09:39→21:47)
[2018-09-05] MEDS: GABAPENTIN 100 MG CAP PO SCH ×2 (09:39→21:48)
[2018-09-05] MEDS: ASPIRIN 81 MG CHEWABLE TAB PO SCH (09:39)
[2018-09-05] MEDS: predniSONE 20 MG TAB PO SCH (09:39)
[2018-09-05] MEDS: PANTOPRAZOLE SODIUM 40 MG TAB PO SCH (09:40)
[2018-09-05] MEDS: CHOLECALCIFEROL VIT D3 2,000 UNITS TAB/CAP PO SCH (09:40)
[2018-09-05] MEDS: SENNOSIDES/DOCUSATE SODIUM TAB PO SCH ×2 (09:41→21:48)
--- NOTE | 2018-09-05 15:01 | HOSPPROG ---
Hospitalist Progress Note Assessment/Plan: 87 yo F with hx of COPD and chronic hypoxic respiratory failure on 4L oxygen chronically presenting with increased sob and chest pain found to have small volume PE and COPD exacerbation. She was recently admitted and was treated for coronovirus infection and COPD exacerbation. Imaging is not consistent with any recurrent infection. #Acute on chronic Respiratory Failure, improving -work of breathing is better since admission -Etiology is likely multifactorial and due to COPD-E and Acute PE #Anemia- H/H has trended down 10 points since admission. No obvious bloody stools, or melena. Will check retic, iron panel, and fecal occult. monitor H/H #Acute PE, small volume. INR therapeutic, so can stop lovenox. Has a history of GIB and so started on protonix. No melena/hematochezia. #COPD exacerbation. failed solumedrol and so prednisone increased to 60mg on admit. today down to 40, and lungs sound clear with good air movement and no increase in oxygen requirement. slow taper. -scheduled and PRN nebs -oxygen -prednisone taper #Paroxysmal Afib, was not on AC on admission. appears rate controlled currently -cont coumadin # Descending thoracic aorta thrombus: noted incidentally on imaging -AC per above -No signs or symptoms of thrombus progression or occlusion -unclear source, possibly Afib. TTE unremarkable #Severe sepsis vs non infectious SIRS on admission -patient meeting criteria for severe sepsis with leukocytosis, tachypnea and lactate of 3.1 on arrival, suspect this is a non infectious SIRS due to PE given CT showing PE, no pna and no other infectious source noted. Received levaquin on admission, no further abx given -no indication for abx at this time # DNR # IP status, cont inpt care. cont care. Will need HHC, possibly at [facility] PPX- SCDS, coumadin therapeutic Fluids- None Lytes- WNL Nutrition- regular cor- DNR Dispo- inpatient. PT recommending SNF so possible dispo tomorrow. Subjective: still very tired. no pain, and breathing better today. Objective: Vital Signs Temp Pulse Resp BP Pulse Ox 36.6 C 66 14 99/72 L 96 09/05/18 08:00 09/05/18 11:02 09/05/18 11:02 09/05/18 08:00 09/05/18 11:02 Laboratory Results 09/05/18 04:47 09/05/18 04:47 09/04/18 09/05/18 09/06/18 05:59 05:59 05:59 Intake Total 1350 240 Output Total 1200 Balance 150 240 PT 28.3 SEC (12.0-15.0) H 09/05/18 04:47 INR 2.66 (0.83-1.16) H 09/05/18 04:47 - Physical Exam Constitutional: no apparent distress, appears nourished, not in pain Eyes: PERRL, anicteric sclera, EOMI Ears, Nose, Mouth, Throat: moist mucous membranes, hearing normal, ears appear normal, no oral mucosal ulcers Cardiovascular: regular rate and rhythym, no murmur, rub, or gallop Respiratory: no respiratory distress, no rales or rhonchi, clear to auscultation Gastrointestinal: normoactive bowel sounds, soft, non-tender abdomen, no palpable masses Genitourinary: no bladder fullness, no bladder tenderness, no renal bruits Skin: no rashes or abrasions, no fluctuance, no induration Musculoskeletal: full muscle strength, no muscle tenderness, normal joint ROM Neurologic: AAOx3, sensation intact bilaterally Psychiatric: interacting appropriately, not anxious, not encephalopathic, thought process linear Lymph, Heme, Immunologic: no cervical LAD, no supraclavicular LAD ICD10 Worksheet Patient Problems: Problems Problem Status Onset Dyspnea Acute Fatigue Acute Atelectasis of left lung Acute Chronic Disease [facility]/Transitional Care Acute Chronic obstructive pulmonary disease with acute exacerbation Acute
[2018-09-05] MEDS ORDERED: WARFARIN SODIUM 3 MG TAB PO ONE (16:00)
[2018-09-05] MEDS: LEVOTHYROXINE 88 MCG TAB PO SCH (18:56)
[2018-09-05] MEDS: MELATONIN 3 MG TAB PO SCH (21:47)
[2018-09-05] MEDS: PRAVASTATIN SODIUM 40 MG TAB PO SCH (21:47)
[2018-09-05] MEDS: MIRTAZAPINE 15 MG TAB PO SCH (21:48)
[2018-09-06] MEDS: IPRATROPIUM/ALBUTEROL 3 ML DEYVIAL IH SCH ×2 (05:46→11:26)
[2018-09-06 06:22] LABS: PLATELET COUNT 224 10^3/uL (150-400)
[2018-09-06 08:58] VITALS: BP 131/74
[2018-09-06] MEDS ORDERED: predniSONE 20 MG TAB PO SCH (09:00)
[2018-09-06] MEDS: guaiFENesin 600 MG TAB.ER PO SCH (09:30)
[2018-09-06] MEDS: CHOLECALCIFEROL VIT D3 2,000 UNITS TAB/CAP PO SCH (09:30)
[2018-09-06] MEDS: GABAPENTIN 100 MG CAP PO SCH (09:32)
[2018-09-06] MEDS: PANTOPRAZOLE SODIUM 40 MG TAB PO SCH (09:32)
[2018-09-06] MEDS: SENNOSIDES/DOCUSATE SODIUM TAB PO SCH (09:33)
[2018-09-06] MEDS: POLYETHYLENE GLYCOL 3350 17 GM PKT PO SCH (09:33)
[2018-09-06] MEDS: Umeclidinium Brm/Vilanterol Tr [Anoro Ellipta 62.5-25 Mcg Inh] IH SCH (09:35)
[2018-09-06] MEDS: ASPIRIN 81 MG CHEWABLE TAB PO SCH (09:37)
--- NOTE | 2018-09-06 13:41 | PDIAF ---
- Diagnosis Code Status: Do Not Resuscitate - Medication Management Additional Medication Instructions: taper prednisone over the next 4 days. Recommend 20mg daily for the next day then 10mg daily for 2 days, then 5mg then stop. Discharge Medications: electronically signed and located in the Home Medication List. - Orders Services needed: Registered Nurse, Physical Therapy, Occupational Therapy Isolation Type: None Diet Recommendation: no restrictions on diet Diet Texture: Regular Texture Diet Additional Instructions: 1. Use nebulizer treatments as directed. 2. Continue home O2. 3. Follow up with your primary care provider. 4 take medications as rx. check INR daily until stable with goal INR between 2- 3. - Labs/Radiology PT/INR Date: 09/07/18 (check INR daily until stable. adjust coumadin as needed) - Follow Up Care Current Providers and Referrals: Young Gamboa MD [Medical Doctor] - As per Instructions
--- NOTE | 2018-09-06 14:03 | ASMTLACE ---
LACE Length of stay for Answers: 4-6 days current admission Acuity / Level of Answers: Yes Care: Did the patient have an inpatient admission? Comorbidities - select Answers: Chronic pulmonary disease all that apply Other Notes: HTN; A fib # of Emergency department Answers: 1-2 visits in the last 6 months Score: 11 Date Signed: 09/06/2018 02:02 PM Electronically Signed By:Virginia Cabrera RN
--- NOTE | 2018-09-06 15:24 | ASMTDCNOTE ---
Case Management Discharge Discharge Order Complete? Answers: Yes Patient to Obtain Answers: Other Notes: [facility] Medications Transportation Arranged Answers: Other Notes: Wheelchair Van Transport will Pick (Date 09/06/2018 04:00 PM & Time) Faxed Final Orders Answers: Yes Agency/Facility Transfer Answers: Yes Report Printed & Faxed to Receiving Agency Family Notified Answers: Yes Discharge Comments Notes: D/w , final orders faxed. Laura at the [facility] yoon to call report. Date Signed: 09/06/2018 03:24 PM Electronically Signed By:Virginia Cabrera RN
[2018-09-06] MEDS ORDERED: WARFARIN SODIUM 3 MG TAB PO ONE (16:00)
--- NOTE | 2018-09-06 16:46 | PDDCSUM ---
Discharge Summary Discharge Summary: Discharge diagnosis Acute pulmonary embolism Acute on chronic hypoxemic respiratory failure COPD exacerbation Anemia Paroxysmal AFib Descending thoracic aorta thrombus SIRS criteria Patient is an 87-year-old female with past medical history of COPD on chronic oxygen 4 L who was admitted with worsening shortness of breath. CT was obtained that showed an acute pulmonary embolus. She was started on Coumadin and Lovenox bridge. She had a history of GI bleeds and so started on Protonix. For her COPD exacerbation she was given prednisone initially at 60 mg on admission this was able to be tapered down. Her oxygen requirement decreased to below baseline. She did have some anemia the and her H&H trended down on admission but she had no melena or hematochezia she was held an extra day to ensure that her H&H did not continue to trend down and it did not. On the day of discharge her H&H are actually started to climb. She was evaluated by PT who felt that she was too weak to go home and so was discharged to SNF for continued rehabilitation Discharge medications She was to resume home medications Coumadin was added with therapeutic INR on discharge Prednisone to be slowly tapered by physician at nursing facility Disposition detention facility Over 30 min was spent on the discharge of this patient
== END 2018-09-06 16:31 | DRG 175 ==
LOC: EDUNIT# → OBSVTOIN 14:42 → F3E 23:10
PROVIDERS: ADMIT Internal Medicine; ATTEND Internal Medicine
DX: I26.99 Other pulmonary embolism without acute cor pulmonale (principal); J96.21 Acute and chronic respiratory failure with hypoxia; J44.1 Chronic obstructive pulmonary disease with (acute) exacerbation; R65.10 Systemic inflammatory response syndrome (SIRS) of non-infectious origin without acute organ dysfunction; I74.11 Embolism and thrombosis of thoracic aorta; Z99.81 Dependence on supplemental oxygen; D64.9 Anemia, unspecified; I48.0 Paroxysmal atrial fibrillation; I10 Essential (primary) hypertension; E78.5 Hyperlipidemia, unspecified; E03.9 Hypothyroidism, unspecified; Z66 Do not resuscitate; Z96.659 Presence of unspecified artificial knee joint; Z87.891 Personal history of nicotine dependence
CPT/HCPCS: 84484-ER; 96365; 96366; 97116-GP; 97161-GP; 97165-GO; 97530-GO; 97530-GP; 97535-GO; J1650; J1956; J2270; J2930; J7512; J7613; Q9967